=== PATIENT | male | born 1965 | race Caucasian/White ===

== ENCOUNTER 2017-11-11 16:50 | Inpatient (IN) | payer BC ==
[~2017-11-11] VITALS: Ht 172.7 cm; Wt 94.8 kg
[2017-11-11 17:42] VITALS: BP 107/85
[2017-11-11 18:00] VITALS: BP 106/76
[2017-11-11] MEDS ORDERED: DILTIAZEM HCL 30MG TABLET PO SCH (18:08)
[2017-11-11 18:20] LABS: HEMATOCRIT. 42.2 % (42.0-52.0); HEMOGLOBIN. 13.1 g/dL (14.0-18.0); MEAN CORPUSCULAR HEMOGLOBIN 24.8 pg (28.0-32.0); MEAN PLATELET VOLUME 7.6 fl (7.4-10.4); PLATELET 140 x1000/uL (130-400); RED BLOOD CELL COUNT 5.28 mill/uL (4.7-6.1); RED CELL DISTRIBUTION WIDTH 19.2 % (11.6-14.6)
[2017-11-11 18:35] LABS: CHLORIDE 106 mEq/L (98-107)
[2017-11-11 18:44] LABS: CREATINE KINASE MB FRACTION 1.3 ng/mL (0.5-3.6); HDL CHOLESTEROL 20 mg/dL (40-59); LDL CHOLESTEROL 95 mg/dL (5-100); TROPONIN I 0.19 ng/mL (0.00-0.04)
[2017-11-11] MEDS ORDERED: DEXTROSE 50% WATER 50ML SYRINGE IV PRN (18:45)
[2017-11-11] MEDS ORDERED: FUROSEMIDE 20MG/2ML VIAL IVP SCH (18:45)
[2017-11-11 18:55] LABS: HEPATITIS B SURFACE ANTIGEN NEGATIVE
[2017-11-11 19:08] LABS: PLATELET ESTIMATE NORMAL
[2017-11-11 19:23] LABS: HEPATITIS B CORE AB IGM NEGATIVE
[2017-11-11 19:25] LABS: HEPATITIS A AB IGM NEGATIVE (NEGATIVE)
[2017-11-11] MEDS: NITROGLYCERIN OINT 1GM/INCH UDPKT TD SCH (19:36)
[2017-11-11 20:00] VITALS: BP 139/87
[2017-11-11] MEDS ORDERED: DILTIAZEM HCL 30MG TABLET PO NR (20:00)
[2017-11-11] MEDS ORDERED: DIGOXIN 500MCG/2ML AMP IV NR (20:00)
[2017-11-11] MEDS ORDERED: FUROSEMIDE 20MG/2ML VIAL IVP NR (20:00)
[2017-11-11] MEDS ORDERED: ENOXAPARIN 80MG/0.8ML SYR SUBCUT NR (20:00)
[2017-11-11] MEDS: BLOOD SUGAR DIAGNOSTIC STRIP TEST SCH (20:43)
[2017-11-11] MEDS ORDERED: SODIUM CHLORIDE 0.9% 500 ML IV NR (21:00)
[2017-11-11] MEDS: CEFTRIAXONE 2 G in SODIUM CHLORIDE 0.9% 50 ML IV SCH (21:52)
[2017-11-11 22:00] VITALS: BP 101/71
[2017-11-11] MEDS: INSULIN LISPRO 100 UNITS/ML SUBCUT SCH (22:00)
[2017-11-11] MEDS: INSULIN GLARGINE UD 100 UNITS/ML SYR SUBCUT SCH (22:02)
[2017-11-11] MEDS ORDERED: DAPA10TA PO (22:19)
[2017-11-11] MEDS ORDERED: TIOT4MIS3 IH (22:23)
[2017-11-11] MEDS ORDERED: FURO-152 PO (22:23)
[2017-11-12] VITALS (17 sets, daily range): BP systolic 97–135; BP diastolic 56–77
[2017-11-12] MEDS: DILTIAZEM HCL 60MG TABLET PO SCH ×4 (00:52→17:43)
[2017-11-12] MEDS: NITROGLYCERIN OINT 1GM/INCH UDPKT TD SCH ×4 (06:14→17:43)
[2017-11-12] MEDS: BLOOD SUGAR DIAGNOSTIC STRIP TEST SCH ×5 (06:14→21:06)
[2017-11-12] MEDS: INSULIN LISPRO 100 UNITS/ML SUBCUT SCH ×5 (06:20→21:12)
[2017-11-12 06:52] LABS: HEMATOCRIT. 40.4 % (42.0-52.0); HEMOGLOBIN. 12.4 g/dL (14.0-18.0); MEAN CORPUSCULAR HEMOGLOBIN 24.4 pg (28.0-32.0); MEAN CORPUSCULAR VOLUME 79.5 fL (80.0-94.0); MEAN PLATELET VOLUME 7.8 fl (7.4-10.4); PLATELET 126 x1000/uL (130-400); RED BLOOD CELL COUNT 5.08 mill/uL (4.7-6.1); RED CELL DISTRIBUTION WIDTH 19.3 % (11.6-14.6)
[2017-11-12 07:25] LABS: CHLORIDE 103 mEq/L (98-107)
[2017-11-12 07:30] LABS: HDL CHOLESTEROL 16 mg/dL (40-59); LDL CHOLESTEROL 78 mg/dL (5-100)
[2017-11-12] MEDS: MULTIVITAMINS,THER W-MINERALS TABLET PO SCH (08:25)
[2017-11-12] MEDS: ASPIRIN 81MG TABLET PO SCH (08:25)
[2017-11-12] MEDS: PANTOPRAZOLE SODIUM 40 MG/VIAL IV SCH (08:25)
[2017-11-12] MEDS ORDERED: FUROSEMIDE 40MG/4ML VIAL IVP NR (09:00)
[2017-11-12] MEDS: LISINOPRIL 5MG TABLET PO SCH (09:00)
[2017-11-12] MEDS ORDERED: SPIRONOLACTONE 50MG TABLET PO SCH (09:00)
[2017-11-12] MEDS ORDERED: IOHEXOL-350 100 ML BOTTLE ONE (09:30)
[2017-11-12] MEDS ORDERED: FUROSEMIDE 20MG/2ML VIAL IVP SCH ×2 (09:30→17:15)
[2017-11-12] MEDS ORDERED: MORPHINE SULFATE 4 MG/ML CPJ (NOT FOR IM USE) IV NR (09:45)
[2017-11-12] MEDS: INSULIN GLARGINE UD 100 UNITS/ML SYR SUBCUT SCH ×2 (10:14→21:13)
[2017-11-12] MEDS ORDERED: ENOXAPARIN 100MG/ML SYR SUBCUT SCH (11:00)
[2017-11-12] MEDS: FUROSEMIDE 20MG/2ML VIAL IVP SCH ×2 (11:01→17:46)
[2017-11-12 13:11] LABS: PLATELET ESTIMATE SLIGHTLY DECREASED
[2017-11-12] MEDS: HYDRALAZINE HCL 25MG TABLET PO SCH ×2 (14:00→21:06)
[2017-11-12] MEDS ORDERED: DIATR MEGLU/DIATRIZOATE SOLN 30ML PO NR (15:15)
[2017-11-12 15:19] LABS: BG CARBOXYHEMOGLOBIN 0.8 % (0.5-1.5); BG DEOXYHEMOGLOBIN 6.5 % (0.0-5.0); BG FRACTION INSPIRED OXYGEN 32; BG METHEMOGLOBIN 0.4 % (0.0-1.5); BG OXYGEN SATURATION 93.4 % (92.0-98.5); BG OXYHEMOGLOBIN 92.3 % (94.0-97.0); BG PCO2 27.4 mmHg (35.0-45.0); BG PH 7.356 (7.350-7.450); BG SAMPLE SITE RIGHT FEMORAL; BG TOTAL HEMOGLOBIN 13.1 g/dL (12.0-18.0); BG VENT MODE NASAL CANNULA
[2017-11-12] MEDS ORDERED: VANCOMYCIN 2,000 MG in SODIUM CHLORIDE 0.9% 500 ML IV SCH (15:30)
[2017-11-12 16:06] LABS: CLARITY URINE CLEAR (CLEAR); COLOR URINE YELLOW (YELLOW); KETONES URINE NEGATIVE (NEGATIVE); LEUKOCYTE ESTERASE URINE NEGATIVE (NEGATIVE); NITRITE URINE NEGATIVE (NEGATIVE); OCCULT BLOOD URINE TRACE (NEGATIVE); PROTEIN URINE TRACE (NEGATIVE); SPECIFIC GRAVITY URINE 1.021 (1.005-1.030); UROBILINOGEN URINE 0.2 E.U./dL (0.2-1.0)
[2017-11-12 17:16] LABS: INR 1.1; PARTIAL THROMBOPLASTIN TIME 30.1 sec (23.4-31.0); PROTHROMBIN TIME 11.9 sec (9.4-11.6)
[2017-11-12] MEDS ORDERED: IPRATROPIUM/ALBUTEROL 0.5-3(2.5)MG/3ML NEB HHN PRN (19:45)
[2017-11-12] MEDS: IPRATROPIUM/ALBUTEROL 0.5-3(2.5)MG/3ML NEB HHN SCH (20:55)
[2017-11-12] MEDS: CEFTRIAXONE 2 G in SODIUM CHLORIDE 0.9% 50 ML IV SCH (22:22)
[2017-11-12] MEDS: RISPERIDONE 0.5MG TABLET PO SCH (23:43)
[2017-11-13] VITALS (38 sets, daily range): BP systolic 83–164; BP diastolic 39–113
[2017-11-13] MEDS: IPRATROPIUM/ALBUTEROL 0.5-3(2.5)MG/3ML NEB HHN SCH ×3 (02:24→15:39)
[2017-11-13] MEDS: NITROGLYCERIN OINT 1GM/INCH UDPKT TD SCH ×2 (05:28)
[2017-11-13 05:32] LABS: BASOPHILS % 0.2 % (0.0-2.0); EOSINOPHILS % 0.1 % (0.0-5.0); HEMATOCRIT. 37.9 % (42.0-52.0); HEMOGLOBIN. 11.5 g/dL (14.0-18.0); LYMPHOCYTES % 7.4 % (20.0-50.0); MEAN CORPUSCULAR HEMOGLOBIN 24.3 pg (28.0-32.0); MEAN PLATELET VOLUME 7.7 fl (7.4-10.4); MONOCYTES % 5.8 % (2.0-8.0); NEUTROPHILS % 86.5 % (40.0-76.0); PLATELET 108 x1000/uL (130-400); RED BLOOD CELL COUNT 4.74 mill/uL (4.7-6.1); RED CELL DISTRIBUTION WIDTH 19.2 % (11.6-14.6)
[2017-11-13 05:57] LABS: CHLORIDE 104 mEq/L (98-107)
[2017-11-13 06:22] LABS: CREATINE KINASE 127 IU/L (39-308); CREATINE KINASE MB FRACTION 19.5 ng/mL (0.5-3.6)
[2017-11-13] MEDS: DILTIAZEM HCL 60MG TABLET PO SCH ×4 (06:29→18:00)
[2017-11-13] MEDS: HYDRALAZINE HCL 25MG TABLET PO SCH ×2 (06:30→13:25)
[2017-11-13] MEDS: FUROSEMIDE 20MG/2ML VIAL IVP SCH ×2 (06:30→17:15)
[2017-11-13] MEDS: BLOOD SUGAR DIAGNOSTIC STRIP TEST SCH ×4 (08:11→16:30)
[2017-11-13] MEDS: PANTOPRAZOLE SODIUM 40 MG/VIAL IV SCH (08:45)
[2017-11-13] MEDS: ASPIRIN 81MG TABLET PO SCH (08:46)
[2017-11-13] MEDS: RISPERIDONE 0.5MG TABLET PO SCH (08:46)
[2017-11-13] MEDS: LISINOPRIL 5MG TABLET PO SCH (08:46)
[2017-11-13] MEDS: INSULIN LISPRO 100 UNITS/ML SUBCUT SCH ×3 (08:48→12:58)
[2017-11-13] MEDS ORDERED: NITROGLYCERIN 50MG PREMIX 250 ML IV SCH (09:00)
[2017-11-13] MEDS: MULTIVITAMINS,THER W-MINERALS TABLET PO SCH (09:00)
[2017-11-13 09:20] LABS: BG BASE EXCESS -9.8 mmol/L (-2.0-2.0); BG CARBOXYHEMOGLOBIN 0.8 % (0.5-1.5); BG DEOXYHEMOGLOBIN 0.4 % (0.0-5.0); BG FRACTION INSPIRED OXYGEN 100; BG HCO3 ACT 13.5 mmol/L (22.0-26.0); BG METHEMOGLOBIN 0.4 % (0.0-1.5); BG OXYGEN SATURATION 99.6 % (92.0-98.5); BG OXYHEMOGLOBIN 98.4 % (94.0-97.0); BG PCO2 23.8 mmHg (35.0-45.0); BG PH 7.372 (7.350-7.450); BG PO2 256.3 mmHg (75.0-100.0); BG SAMPLE SITE RIGHT BRACHIAL; BG VENT MODE MASK - NRB
[2017-11-13] MEDS ORDERED: DEXTROSE 50% WATER 50ML SYRINGE IV PRN ×3 (09:30→15:30)
[2017-11-13] MEDS ORDERED: SODIUM BICARBONATE 8.4% 1 MEQ/ML 50ML SYR IV SCH (09:45)
[2017-11-13] MEDS ORDERED: ETOMIDATE 2MG/ML 10ML VIAL IV ONE (10:07)
[2017-11-13] MEDS ORDERED: NOREPINEPHRINE 32 MG in DEXT 5% WATER 468 ML IV PRN (10:15)
[2017-11-13] MEDS ORDERED: FENTANYL CITRATE/PF 500 MCG in SODIUM CHLORIDE 0.9% 40 ML IV PRN (10:15)
[2017-11-13] MEDS ORDERED: FUROSEMIDE 40MG/4ML VIAL IVP SCH (10:45)
[2017-11-13 11:03] LABS: BG BASE EXCESS -10.8 mmol/L (-2.0-2.0); BG CARBOXYHEMOGLOBIN 1.1 % (0.5-1.5); BG DEOXYHEMOGLOBIN 2.1 % (0.0-5.0); BG HCO3 ACT 16.2 mmol/L (22.0-26.0); BG METHEMOGLOBIN 0.4 % (0.0-1.5); BG OXYGEN SATURATION 97.9 % (92.0-98.5); BG OXYHEMOGLOBIN 96.4 % (94.0-97.0); BG PCO2 39.7 mmHg (35.0-45.0); BG PH 7.228 (7.350-7.450); BG PO2 120.3 mmHg (75.0-100.0); BG SAMPLE SITE RIGHT RADIAL; BG TIDAL VOLUME(mL) 550 mL; BG TOTAL HEMOGLOBIN 13.6 g/dL (12.0-18.0); BG VENT MODE VENT - A/C; BG VENT RATE 20 set
[2017-11-13] MEDS ORDERED: SODIUM BICARBONATE 8.4% 1 MEQ/ML 50ML SYR IV ONE ×6 (11:15→21:44)
[2017-11-13] MEDS: MIDAZOLAM HCL 100 MG in DEXT 5% WATER 80 ML IV PRN (11:16)
[2017-11-13] MEDS ORDERED: LIDOCAINE HCL/PF 1% 10 MG/ML 5ML VIAL ONE ×2 (11:18→13:01)
[2017-11-13] MEDS ORDERED: SODIUM BICARBONATE 4% (2.4MEQ) 5ML VIAL IV ONE ×2 (11:19→13:02)
[2017-11-13] MEDS: INSULIN GLARGINE UD 100 UNITS/ML SYR SUBCUT SCH (11:49)
[2017-11-13 12:17] LABS: D-DIMER 2.59 mg/L FEU (<0.50); INR 1.1; PARTIAL THROMBOPLASTIN TIME 28.5 sec (23.4-31.0); PROTHROMBIN TIME 11.9 sec (9.4-11.6)
[2017-11-13 12:23] LABS: PHOSPHORUS 7.3 mg/dL (2.5-4.9)
[2017-11-13] MEDS ORDERED: BLOOD SUGAR DIAGNOSTIC STRIP TEST SCH (12:50)
[2017-11-13] MEDS ORDERED: IODIXANOL 320MG/ML 100 ML BOTTLE IV ONE (13:01)
[2017-11-13 13:20] LABS: BG BASE EXCESS -9.5 mmol/L (-2.0-2.0); BG CARBOXYHEMOGLOBIN 0.9 % (0.5-1.5); BG DEOXYHEMOGLOBIN 2.1 % (0.0-5.0); BG HCO3 ACT 16.2 mmol/L (22.0-26.0); BG METHEMOGLOBIN 0.4 % (0.0-1.5); BG OXYGEN SATURATION 97.9 % (92.0-98.5); BG OXYHEMOGLOBIN 96.6 % (94.0-97.0); BG PCO2 34.7 mmHg (35.0-45.0); BG PH 7.287 (7.350-7.450); BG SAMPLE SITE RIGHT RADIAL; BG TIDAL VOLUME(mL) 550 mL; BG TOTAL HEMOGLOBIN 12.5 g/dL (12.0-18.0); BG VENT MODE VENT - A/C; BG VENT RATE 20 set
[2017-11-13 13:40] LABS: INR 1.1; PARTIAL THROMBOPLASTIN TIME 27.8 sec (23.4-31.0); PROTHROMBIN TIME 11.5 sec (9.4-11.6)
[2017-11-13 13:41] LABS: CLARITY URINE CLOUDY (CLEAR); COLOR URINE DARK YELLOW (YELLOW); KETONES URINE NEGATIVE (NEGATIVE); LEUKOCYTE ESTERASE URINE TRACE (NEGATIVE); NITRITE URINE NEGATIVE (NEGATIVE); OCCULT BLOOD URINE 2+ (NEGATIVE); PROTEIN URINE 1+ (NEGATIVE); SPECIFIC GRAVITY URINE 1.019 (1.005-1.030); UROBILINOGEN URINE 0.2 E.U./dL (0.2-1.0)
[2017-11-13 13:57] LABS: AMYLASE 57 IU/L (25-115); CHLORIDE 103 mEq/L (98-107)
[2017-11-13 14:15] LABS: CREATINE KINASE 114 IU/L (39-308); CREATINE KINASE MB FRACTION 17.9 ng/mL (0.5-3.6)
[2017-11-13] MEDS ORDERED: HEPARIN SODIUM 1,000 UNIT/1ML VIAL IV ONE ×3 (14:16→14:38)
[2017-11-13] MEDS ORDERED: CEFAZOLIN 2,000 MG in DEXT 5% WATER 100 ML IV ONE (14:45)
[2017-11-13] MEDS ORDERED: AMINOCAPROIC ACID 10,000 MG in SODIUM CHLORIDE 0.9% 460 ML IV ONE (14:45)
[2017-11-13] MEDS ORDERED: NOREPINEPHRINE 4 MG in DEXT 5% WATER 246 ML IV ONE (14:45)
[2017-11-13] MEDS ORDERED: INSULIN REGULAR (DRIP) 100 UNITS in SODIUM CHLORIDE 0.9% 99 ML IV ONE (14:45)
[2017-11-13] MEDS ORDERED: EPINEPHRINE 4 MG in DEXT 5% WATER 246 ML IV ONE (14:45)
[2017-11-13] MEDS ORDERED: NICARDIPINE 40MG/200ML PREMIX 200 ML IV ONE (14:45)
[2017-11-13] MEDS ORDERED: DEL NIDO ELECTROLYTE-S(PH 7.4) 1,000 ML IV ONE ×2 (14:45)
[2017-11-13] MEDS ORDERED: DOBUTAMINE HCL 250 MG in DEXT 5% WATER 230 ML IV ONE (14:45)
[2017-11-13] MEDS ORDERED: ATROPINE SULFATE 1MG/10ML SYR IV PRN (15:15)
[2017-11-13] MEDS ORDERED: ACETAMINOPHEN 325MG TABLET PO PRN (15:15)
[2017-11-13 15:16] LABS: BG BASE EXCESS -7.8 mmol/L (-2.0-2.0); BG CARBOXYHEMOGLOBIN 0.7 % (0.5-1.5); BG DEOXYHEMOGLOBIN 1.3 % (0.0-5.0); BG HCO3 ACT 17.3 mmol/L (22.0-26.0); BG METHEMOGLOBIN 0.5 % (0.0-1.5); BG OXYGEN SATURATION 98.7 % (92.0-98.5); BG OXYHEMOGLOBIN 97.5 % (94.0-97.0); BG PCO2 33.9 mmHg (35.0-45.0); BG PH 7.325 (7.350-7.450); BG PO2 143.9 mmHg (75.0-100.0); BG SAMPLE SITE RIGHT RADIAL; BG TIDAL VOLUME(mL) 550 mL; BG TOTAL HEMOGLOBIN 12.2 g/dL (12.0-18.0); BG VENT MODE VENT - A/C; BG VENT RATE 20 set
[2017-11-13] MEDS: PROPOFOL 10MG/ML 100ML 100 ML IV PRN (15:24)
[2017-11-13] MEDS ORDERED: BACITRACIN 50,000 UNITS/VIAL ONE ×2 (15:46→21:26)
[2017-11-13] MEDS ORDERED: NORMAL SALINE 0.9% 10 ML SYR ONE ×2 (15:46→21:25)
[2017-11-13] MEDS ORDERED: VANCOMYCIN 1,250 MG in SODIUM CHLORIDE 0.9% 250 ML IV SCH (16:00)
[2017-11-13] MEDS ORDERED: KETAMINE HCL 50 MG/ML 10ML ONE (16:23)
[2017-11-13] MEDS ORDERED: MIDAZOLAM HCL 5 MG/ML VIAL ONE (16:24)
[2017-11-13] MEDS ORDERED: CALCIUM CHLORIDE 1GM/10ML SYR IV ONE ×2 (16:27→17:24)
[2017-11-13] MEDS ORDERED: ALBUMIN HUMAN 12.5G/250ML (5%) IV ONE ×2 (16:27→20:51)
[2017-11-13] MEDS ORDERED: VASOPRESSIN 10 UNIT in SODIUM CHLORIDE 0.9% 100 ML IV PRN (17:00)
[2017-11-13] MEDS ORDERED: GELATIN SPONGE,ABSORBABLE SZ 100 ONE (17:08)
[2017-11-13] MEDS ORDERED: THROMBIN (BOVINE) 5000 UNITS/VIAL TOP ONE (17:08)
[2017-11-13] MEDS ORDERED: NOREPINEPHRINE 4 MG in DEXTROSE 5% WATER 250 ML IV PRN (17:15)
[2017-11-13] MEDS ORDERED: AMIODARONE HCL 50MG/ML 3ML VIAL IV ONE (17:23)
[2017-11-13] MEDS ORDERED: MAGNESIUM SULFATE 5GM/10ML VIAL IV ONE (17:23)
[2017-11-13] MEDS ORDERED: AMINOCAPROIC ACID 250 MG/ML 20ML VIAL ONE (17:23)
[2017-11-13] MEDS ORDERED: ALBUMIN HUMAN 25GM/100ML (25%) IV ONE (17:23)
[2017-11-13] MEDS ORDERED: PHENYLEPHRINE HCL 10 MG/ML 1ML (IV VIAL) IV ONE (17:23)
[2017-11-13] MEDS ORDERED: MANNITOL 20% 500 ML IV ONE (17:24)
[2017-11-13] MEDS ORDERED: HEPARIN 10,000 UNITS/ML VIAL ONE (17:24)
[2017-11-13] MEDS ORDERED: LIDOCAINE HCL 2% 5ML SYRINGE IV ONE (17:24)
[2017-11-13] MEDS ORDERED: HEPARIN 1000 UNITS/ML 10ML ONE ×3 (17:25→20:58)
[2017-11-13] MEDS ORDERED: ESMOLOL 2500MG PREMIX 250 ML IV ONE (18:06)
[2017-11-13] MEDS ORDERED: PHENYLEPHRINE 10MG in DEXT 5% WATER 250ML IV PRN (18:15)
[2017-11-13] MEDS ORDERED: FENTANYL CITRATE/PF 50MCG/ML 5ML VIAL ONE (18:24)
[2017-11-13] MEDS ORDERED: FUROSEMIDE 100MG/10ML VIAL ONE (20:36)
[2017-11-13] MEDS ORDERED: CHLORHEXIDINE GLUCONATE 4% EXTERNAL USE TOP SCH (21:00)
[2017-11-13] MEDS ORDERED: ROCURONIUM BROMIDE 10MG/ML VIAL 5ML IV ONE ×2 (21:22→21:26)
[2017-11-13 22:46] LABS: BASOPHILS % 0.1 % (0.0-2.0); EOSINOPHILS % 0.2 % (0.0-5.0); HEMATOCRIT. 25.7 % (42.0-52.0); LYMPHOCYTES % 7.7 % (20.0-50.0); MEAN CORPUSCULAR HEMOGLOBIN 24.7 pg (28.0-32.0); MEAN CORPUSCULAR VOLUME 79.3 fL (80.0-94.0); MEAN PLATELET VOLUME 7.4 fl (7.4-10.4); MONOCYTES % 2.6 % (2.0-8.0); NEUTROPHILS % 89.4 % (40.0-76.0); PLATELET 62 x1000/uL (130-400); RED BLOOD CELL COUNT 3.24 mill/uL (4.7-6.1); RED CELL DISTRIBUTION WIDTH 19.2 % (11.6-14.6)
[2017-11-13 22:57] LABS: PHOSPHORUS 6.7 mg/dL (2.5-4.9)
[2017-11-13 23:02] LABS: CREATINE KINASE MB FRACTION 88.7 ng/mL (0.5-3.6)
[2017-11-13 23:08] LABS: INR 2.6; PROTHROMBIN TIME 26.8 sec (9.4-11.6)
[2017-11-14] VITALS (98 sets, daily range): BP systolic 87–201; BP diastolic 28–199
[2017-11-14] MEDS: BLOOD SUGAR DIAGNOSTIC STRIP TEST SCH ×19 (00:30→20:30)
[2017-11-14 01:01] LABS: BG BASE EXCESS -2.5 mmol/L (-2.0-2.0); BG CARBOXYHEMOGLOBIN 0.9 % (0.5-1.5); BG DEOXYHEMOGLOBIN 4.5 % (0.0-5.0); BG FRACTION INSPIRED OXYGEN 100; BG HCO3 ACT 22.5 mmol/L (22.0-26.0); BG METHEMOGLOBIN 0.5 % (0.0-1.5); BG OXYGEN SATURATION 95.4 % (92.0-98.5); BG OXYHEMOGLOBIN 94.1 % (94.0-97.0); BG PCO2 39.4 mmHg (35.0-45.0); BG PH 7.374 (7.350-7.450); BG PIP 40 cmH2O; BG PO2 90.3 mmHg (75.0-100.0); BG SAMPLE SITE A-LINE; BG TIDAL VOLUME(mL) 600 mL; BG TOTAL HEMOGLOBIN 6.8 g/dL (12.0-18.0); BG VENT MODE VENT - A/C; BG VENT RATE 14 set
[2017-11-14 01:20] LABS: MEAN CORPUSCULAR HEMOGLOBIN 24.4 pg (28.0-32.0); MEAN PLATELET VOLUME 7.8 fl (7.4-10.4); PLATELET 108 x1000/uL (130-400); RED BLOOD CELL COUNT 2.52 mill/uL (4.7-6.1)
[2017-11-14 01:23] LABS: HEMATOCRIT. 19.9 % (42.0-52.0); HEMOGLOBIN. 6.1 g/dL (14.0-18.0)
[2017-11-14 01:25] LABS: INR 1.3; PARTIAL THROMBOPLASTIN TIME 35.1 sec (23.4-31.0); PROTHROMBIN TIME 13.4 sec (9.4-11.6)
[2017-11-14 01:28] LABS: PHOSPHORUS 6.1 mg/dL (2.5-4.9)
[2017-11-14 01:46] LABS: MEAN CORPUSCULAR HEMOGLOBIN 24.5 pg (28.0-32.0); MEAN CORPUSCULAR VOLUME 78.7 fL (80.0-94.0); PLATELET 112 x1000/uL (130-400); RED BLOOD CELL COUNT 2.55 mill/uL (4.7-6.1)
[2017-11-14 01:52] LABS: HEMATOCRIT 20.1 % (42.0-52.0); HEMOGLOBIN 6.2 g/dL (14.0-18.0)
[2017-11-14 02:04] LABS: BG BASE EXCESS -2.5 mmol/L (-2.0-2.0); BG DEOXYHEMOGLOBIN 1.1 % (0.0-5.0); BG FRACTION INSPIRED OXYGEN 100; BG METHEMOGLOBIN 0.6 % (0.0-1.5); BG OXYGEN SATURATION 98.9 % (92.0-98.5); BG OXYHEMOGLOBIN 97.3 % (94.0-97.0); BG PCO2 36.4 mmHg (35.0-45.0); BG PO2 182.3 mmHg (75.0-100.0); BG SAMPLE SITE A-LINE; BG TIDAL VOLUME(mL) 600 mL; BG TOTAL HEMOGLOBIN 6.6 g/dL (12.0-18.0); BG VENT MODE VENT - A/C; BG VENT RATE 14 set
[2017-11-14] MEDS: MIDAZOLAM HCL 100 MG in DEXT 5% WATER 80 ML IV PRN (03:54)
[2017-11-14] MEDS ORDERED: EPINEPHRINE 4 MG in DEXT 5% WATER 246 ML IV PRN (04:00)
[2017-11-14 04:05] LABS: PLATELET ESTIMATE SLIGHTLY DECREASED
[2017-11-14] MEDS: VASOPRESSIN 10 UNIT in SODIUM CHLORIDE 0.9% 99.5 ML IV PRN ×2 (04:34→09:58)
[2017-11-14] MEDS: PROPOFOL 10MG/ML 100ML 100 ML IV PRN ×2 (05:40→07:06)
[2017-11-14] MEDS: PHENYLEPHRINE 10 MG in SODIUM CHLORIDE 0.9% 249 ML IV PRN ×2 (05:49→07:53)
[2017-11-14] MEDS: INSULIN REGULAR (DRIP) 100 UNITS in SODIUM CHLORIDE 0.9% 100 ML IV SCH (06:04)
[2017-11-14 06:17] LABS: BG BASE EXCESS -2.2 mmol/L (-2.0-2.0); BG FRACTION INSPIRED OXYGEN 60; BG HCO3 ACT 22.4 mmol/L (22.0-26.0); BG METHEMOGLOBIN 0.4 % (0.0-1.5); BG OXYHEMOGLOBIN 95.6 % (94.0-97.0); BG PCO2 37.5 mmHg (35.0-45.0); BG PH 7.395 (7.350-7.450); BG PO2 105.3 mmHg (75.0-100.0); BG SAMPLE SITE A-LINE; BG TIDAL VOLUME(mL) 600 mL; BG TOTAL HEMOGLOBIN 8.4 g/dL (12.0-18.0); BG VENT MODE VENT - A/C; BG VENT RATE 14 set
[2017-11-14 06:49] LABS: INR 1.2; PARTIAL THROMBOPLASTIN TIME 28.8 sec (23.4-31.0); PROTHROMBIN TIME 12.4 sec (9.4-11.6)
[2017-11-14] MEDS: FUROSEMIDE 20MG/2ML VIAL IVP SCH (07:15)
[2017-11-14 07:19] LABS: CHLORIDE 107 mEq/L (98-107)
[2017-11-14 07:25] LABS: PHOSPHORUS 6.1 mg/dL (2.5-4.9)
[2017-11-14] MEDS: IPRATROPIUM/ALBUTEROL 0.5-3(2.5)MG/3ML NEB HHN SCH ×2 (08:10→14:49)
[2017-11-14 08:56] LABS: HEMATOCRIT. 24.3 % (42.0-52.0); HEMOGLOBIN. 7.7 g/dL (14.0-18.0); MEAN CORPUSCULAR HEMOGLOBIN 25.8 pg (28.0-32.0); MEAN CORPUSCULAR VOLUME 81.2 fL (80.0-94.0); MEAN PLATELET VOLUME 8.4 fl (7.4-10.4); PLATELET 117 x1000/uL (130-400); RED BLOOD CELL COUNT 2.99 mill/uL (4.7-6.1)
[2017-11-14] MEDS ORDERED: CHLORHEXIDINE GLUCONATE 4% EXTERNAL USE TOP SCH (09:00)
[2017-11-14] MEDS: MULTIVITAMINS,THER W-MINERALS TABLET PO SCH (09:00)
[2017-11-14] MEDS: ASPIRIN 81MG TABLET PO SCH (09:00)
[2017-11-14] MEDS: LISINOPRIL 5MG TABLET PO SCH (09:00)
[2017-11-14 09:35] LABS: ATYPICAL LYMPHOCYTES 1; PLATELET ESTIMATE SLIGHTLY DECREASED
[2017-11-14] MEDS ORDERED: CALCIUM CHLORIDE 1,000 MG in DEXT 5% WATER 100 ML IV SCH (10:00)
[2017-11-14] MEDS ORDERED: CALCIUM CHLORIDE 1,000 MG in DEXT 5% WATER 90 ML IV SCH (11:00)
[2017-11-14] MEDS ORDERED: CALCIUM CHLORIDE 5,000 MG in DEXT 5% WATER 500 ML IV SCH (11:00)
[2017-11-14] MEDS: RISPERIDONE 0.5MG TABLET PO SCH (11:09)
[2017-11-14] MEDS: MAGNESIUM 1 G PREMIX 100 ML IV SCH (11:11)
[2017-11-14] MEDS: VANCOMYCIN 1,250 MG in SODIUM CHLORIDE 0.9% 250 ML IV SCH (11:53)
[2017-11-14] MEDS: PANTOPRAZOLE SODIUM 40 MG/VIAL IV SCH (11:53)
[2017-11-14] MEDS ORDERED: CALCIUM CHLORIDE 5,000 MG in DEXT 5% WATER 500 ML IV NR (12:00)
[2017-11-14] MEDS ORDERED: FUROSEMIDE 40MG/4ML VIAL IVP SCH ×2 (13:45→20:30)
[2017-11-14 14:43] LABS: BG BASE EXCESS -1.5 mmol/L (-2.0-2.0); BG CARBOXYHEMOGLOBIN 0.5 % (0.5-1.5); BG DEOXYHEMOGLOBIN 1.3 % (0.0-5.0); BG FRACTION INSPIRED OXYGEN 60; BG HCO3 ACT 22.7 mmol/L (22.0-26.0); BG METHEMOGLOBIN 0.5 % (0.0-1.5); BG OXYGEN SATURATION 98.7 % (92.0-98.5); BG OXYHEMOGLOBIN 97.7 % (94.0-97.0); BG PCO2 35.9 mmHg (35.0-45.0); BG PH 7.418 (7.350-7.450); BG PO2 169.2 mmHg (75.0-100.0); BG SAMPLE SITE A-LINE; BG TIDAL VOLUME(mL) 600 mL; BG TOTAL HEMOGLOBIN 9.2 g/dL (12.0-18.0); BG VENT MODE VENT - A/C; BG VENT RATE 14 set
[2017-11-14 16:01] LABS: BASOPHILS % 0.1 % (0.0-2.0); HEMATOCRIT. 26.8 % (42.0-52.0); HEMOGLOBIN. 8.5 g/dL (14.0-18.0); LYMPHOCYTES % 9.5 % (20.0-50.0); MEAN CORPUSCULAR HEMOGLOBIN 26.6 pg (28.0-32.0); MEAN CORPUSCULAR VOLUME 83.3 fL (80.0-94.0); MEAN PLATELET VOLUME 8.4 fl (7.4-10.4); MONOCYTES % 6.6 % (2.0-8.0); NEUTROPHILS % 83.8 % (40.0-76.0); PLATELET 109 x1000/uL (130-400); RED BLOOD CELL COUNT 3.22 mill/uL (4.7-6.1); RED CELL DISTRIBUTION WIDTH 19.7 % (11.6-14.6)
[2017-11-14 17:07] LABS: BG BASE EXCESS -1.6 mmol/L (-2.0-2.0); BG CARBOXYHEMOGLOBIN 0.4 % (0.5-1.5); BG DEOXYHEMOGLOBIN 2.2 % (0.0-5.0); BG FRACTION INSPIRED OXYGEN 60; BG HCO3 ACT 22.6 mmol/L (22.0-26.0); BG METHEMOGLOBIN 0.5 % (0.0-1.5); BG OXYGEN SATURATION 97.8 % (92.0-98.5); BG OXYHEMOGLOBIN 96.9 % (94.0-97.0); BG PCO2 35.7 mmHg (35.0-45.0); BG PH 7.419 (7.350-7.450); BG PO2 112.2 mmHg (75.0-100.0); BG SAMPLE SITE A-LINE; BG TIDAL VOLUME(mL) 600 mL; BG TOTAL HEMOGLOBIN 9.1 g/dL (12.0-18.0); BG VENT MODE VENT - A/C; BG VENT RATE 14 set
[2017-11-14] MEDS: DEXT 5%/0.45% NACL 1000ML 1,000 ML IV SCH (19:14)
[2017-11-14] MEDS: CEFTRIAXONE 2 G in SODIUM CHLORIDE 0.9% 50 ML IV SCH ×2 (20:00→20:14)
[2017-11-14 21:07] LABS: BASOPHILS % 0.1 % (0.0-2.0); HEMOGLOBIN. 7.5 g/dL (14.0-18.0); LYMPHOCYTES % 8.2 % (20.0-50.0); MEAN CORPUSCULAR HEMOGLOBIN 27.4 pg (28.0-32.0); MEAN CORPUSCULAR VOLUME 83.6 fL (80.0-94.0); MEAN PLATELET VOLUME 7.9 fl (7.4-10.4); MONOCYTES % 6.9 % (2.0-8.0); NEUTROPHILS % 84.8 % (40.0-76.0); PLATELET 80 x1000/uL (130-400); RED BLOOD CELL COUNT 2.76 mill/uL (4.7-6.1); RED CELL DISTRIBUTION WIDTH 18.6 % (11.6-14.6)
[2017-11-14] MEDS ORDERED: KCL 10MEQ/50ML PREMIX 150 ML IV PRN (22:15)
[2017-11-14] MEDS ORDERED: KCL 10MEQ/50ML PREMIX 200 ML IV PRN (22:15)
[2017-11-14 23:12] LABS: HEMATOCRIT 28.1 % (42.0-52.0); HEMOGLOBIN 9.4 g/dL (14.0-18.0); MEAN CORPUSCULAR HEMOGLOBIN 27.8 pg (28.0-32.0); MEAN CORPUSCULAR VOLUME 82.6 fL (80.0-94.0); PLATELET 102 x1000/uL (130-400); RED CELL DISTRIBUTION WIDTH 18.3 % (11.6-14.6)
[2017-11-14 23:23] LABS: PHOSPHORUS 6.3 mg/dL (2.5-4.9)
[2017-11-15] VITALS (62 sets, daily range): BP systolic 110–177; BP diastolic 55–92
[2017-11-15] MEDS: KCL 10MEQ/50ML PREMIX 100 ML IV PRN ×3 (00:07→16:24)
[2017-11-15] MEDS: MORPHINE SULFATE 4 MG/ML CPJ (NOT FOR IM USE) IV PRN ×2 (00:32→13:18)
[2017-11-15] MEDS: MAGNESIUM 1 G PREMIX 100 ML IV SCH (02:16)
[2017-11-15 05:13] LABS: BG BASE EXCESS -1.5 mmol/L (-2.0-2.0); BG CARBOXYHEMOGLOBIN 0.2 % (0.5-1.5); BG DEOXYHEMOGLOBIN 1.8 % (0.0-5.0); BG FRACTION INSPIRED OXYGEN 30; BG HCO3 ACT 22.4 mmol/L (22.0-26.0); BG METHEMOGLOBIN 0.1 % (0.0-1.5); BG OXYGEN SATURATION 98.2 % (92.0-98.5); BG OXYHEMOGLOBIN 97.9 % (94.0-97.0); BG PCO2 34.5 mmHg (35.0-45.0); BG PH 7.431 (7.350-7.450); BG PO2 143.4 mmHg (75.0-100.0); BG SAMPLE SITE A-LINE; BG TIDAL VOLUME(mL) 550 mL; BG TOTAL HEMOGLOBIN 9.8 g/dL (12.0-18.0); BG VENT MODE VENT - A/C; BG VENT RATE 12 set
[2017-11-15 05:55] LABS: HEMATOCRIT. 28.6 % (42.0-52.0); HEMOGLOBIN. 9.2 g/dL (14.0-18.0); LYMPHOCYTES % 8.5 % (20.0-50.0); MEAN CORPUSCULAR HEMOGLOBIN 26.7 pg (28.0-32.0); MEAN PLATELET VOLUME 8.2 fl (7.4-10.4); MONOCYTES % 5.3 % (2.0-8.0); NEUTROPHILS % 86.2 % (40.0-76.0); PLATELET 112 x1000/uL (130-400); RED BLOOD CELL COUNT 3.44 mill/uL (4.7-6.1); RED CELL DISTRIBUTION WIDTH 18.5 % (11.6-14.6)
[2017-11-15 06:01] LABS: CHLORIDE 110 mEq/L (98-107)
[2017-11-15 06:17] LABS: PHOSPHORUS 6.3 mg/dL (2.5-4.9)
[2017-11-15] MEDS: BLOOD SUGAR DIAGNOSTIC STRIP TEST SCH ×12 (07:30→18:46)
[2017-11-15 09:07] LABS: BG BASE EXCESS 0.7 mmol/L (-2.0-2.0); BG CARBOXYHEMOGLOBIN 0.5 % (0.5-1.5); BG DEOXYHEMOGLOBIN 1.4 % (0.0-5.0); BG FRACTION INSPIRED OXYGEN 50; BG METHEMOGLOBIN 0.3 % (0.0-1.5); BG OXYGEN SATURATION 98.6 % (92.0-98.5); BG OXYHEMOGLOBIN 97.8 % (94.0-97.0); BG PCO2 38.9 mmHg (35.0-45.0); BG PH 7.426 (7.350-7.450); BG PO2 149.2 mmHg (75.0-100.0); BG PRESSURE SUPPORT 8; BG SAMPLE SITE A-LINE; BG TOTAL HEMOGLOBIN 9.8 g/dL (12.0-18.0); BG VENT MODE VENT - CPAP
[2017-11-15] MEDS: DEXT 5%/0.45% NACL 1000ML 1,000 ML IV SCH (10:43)
[2017-11-15] MEDS: VANCOMYCIN 1,250 MG in SODIUM CHLORIDE 0.9% 250 ML IV SCH (10:52)
[2017-11-15] MEDS: INSULIN REGULAR (DRIP) 100 UNITS in SODIUM CHLORIDE 0.9% 100 ML IV SCH (10:59)
[2017-11-15 11:13] LABS: BG BASE EXCESS -1.3 mmol/L (-2.0-2.0); BG CARBOXYHEMOGLOBIN 0.2 % (0.5-1.5); BG DEOXYHEMOGLOBIN 5.9 % (0.0-5.0); BG FRACTION INSPIRED OXYGEN 40; BG METHEMOGLOBIN 0.3 % (0.0-1.5); BG OXYGEN SATURATION 94.1 % (92.0-98.5); BG OXYHEMOGLOBIN 93.6 % (94.0-97.0); BG PCO2 36.8 mmHg (35.0-45.0); BG PH 7.413 (7.350-7.450); BG PO2 77.4 mmHg (75.0-100.0); BG SAMPLE SITE A-LINE; BG TOTAL HEMOGLOBIN 10.3 g/dL (12.0-18.0); BG VENT MODE MASK - AEROSOL
[2017-11-15] MEDS ORDERED: RACEPINEPHRINE 2.25% 0.5ML NEB VIAL HHN PRN (12:00)
[2017-11-15] MEDS ORDERED: FUROSEMIDE 40MG/4ML VIAL IVP NR (12:15)
[2017-11-15] MEDS ORDERED: AMLODIPINE 5MG TABLET PO PRN (12:30)
[2017-11-15] MEDS: NITROGLYCERIN OINT 1GM/INCH UDPKT TD SCH ×3 (12:32→23:52)
[2017-11-15 13:37] LABS: BG BASE EXCESS -0.3 mmol/L (-2.0-2.0); BG CARBOXYHEMOGLOBIN 0.1 % (0.5-1.5); BG DEOXYHEMOGLOBIN 5.2 % (0.0-5.0); BG FRACTION INSPIRED OXYGEN 50; BG HCO3 ACT 23.7 mmol/L (22.0-26.0); BG METHEMOGLOBIN 0.5 % (0.0-1.5); BG OXYGEN SATURATION 94.8 % (92.0-98.5); BG OXYHEMOGLOBIN 94.2 % (94.0-97.0); BG PCO2 36.2 mmHg (35.0-45.0); BG PH 7.433 (7.350-7.450); BG PO2 80.9 mmHg (75.0-100.0); BG SAMPLE SITE A-LINE; BG TOTAL HEMOGLOBIN 10.5 g/dL (12.0-18.0); BG VENT MODE MASK - AEROSOL
[2017-11-15 13:54] LABS: HEMATOCRIT. 29.8 % (42.0-52.0); HEMOGLOBIN. 9.5 g/dL (14.0-18.0); MEAN CORPUSCULAR HEMOGLOBIN 26.4 pg (28.0-32.0); MEAN PLATELET VOLUME 7.7 fl (7.4-10.4); PLATELET 130 x1000/uL (130-400); RED BLOOD CELL COUNT 3.59 mill/uL (4.7-6.1); RED CELL DISTRIBUTION WIDTH 19.1 % (11.6-14.6)
[2017-11-15 14:16] LABS: PLATELET ESTIMATE NORMAL
[2017-11-15] MEDS ORDERED: ENOXAPARIN 80MG/0.8ML SYR SUBCUT NR (17:00)
[2017-11-15] MEDS ORDERED: IPRATROPIUM/ALBUTEROL 0.5-3(2.5)MG/3ML NEB HHN SCH (18:00)
[2017-11-15] MEDS ORDERED: WARFARIN SODIUM 5MG TABLET PO NR (18:00)
[2017-11-15] MEDS: IPRATROPIUM/ALBUTEROL 0.5-3(2.5)MG/3ML NEB HHN PRN (18:16)
[2017-11-15] MEDS ORDERED: IPRATROPIUM BROMIDE (0.02%) 0.5MG/2.5ML NEB HHN SCH (18:30)
[2017-11-15 19:47] LABS: BG BASE EXCESS -1.4 mmol/L (-2.0-2.0); BG CARBOXYHEMOGLOBIN 0.4 % (0.5-1.5); BG DEOXYHEMOGLOBIN 4.7 % (0.0-5.0); BG FRACTION INSPIRED OXYGEN 40; BG HCO3 ACT 22.6 mmol/L (22.0-26.0); BG METHEMOGLOBIN 0.3 % (0.0-1.5); BG OXYGEN SATURATION 95.3 % (92.0-98.5); BG OXYHEMOGLOBIN 94.6 % (94.0-97.0); BG PCO2 35.6 mmHg (35.0-45.0); BG PH 7.421 (7.350-7.450); BG PO2 82.5 mmHg (75.0-100.0); BG SAMPLE SITE LEFT RADIAL; BG TOTAL HEMOGLOBIN 10.5 g/dL (12.0-18.0); BG VENT MODE MASK - AEROSOL
[2017-11-15] MEDS ORDERED: NICARDIPINE 40MG/200ML PREMIX 200 ML IV PRN (20:00)
[2017-11-15] MEDS ORDERED: MAGNESIUM/ALUMINUM HYDROXIDE/SIMETHICONE 30ML UDC PO SCH (20:00)
[2017-11-15] MEDS: CEFTRIAXONE 2 G in SODIUM CHLORIDE 0.9% 50 ML IV SCH (20:20)
[2017-11-15] MEDS ORDERED: NICARDIPINE 50 MG in SODIUM CHLORIDE 0.9% 230 ML IV PRN (21:00)
[2017-11-15] MEDS: DOCUSATE SODIUM 100MG CAPSULE PO SCH (21:00)
[2017-11-15] MEDS: IPRATROPIUM BROMIDE (0.02%) 0.5MG/2.5ML NEB HHN SCH (21:28)
[2017-11-16] VITALS (31 sets, daily range): BP systolic 111–152; BP diastolic 64–95
[2017-11-16] MEDS: KCL 10MEQ/50ML PREMIX 100 ML IV PRN (00:39)
[2017-11-16] MEDS: MORPHINE SULFATE 4 MG/ML CPJ (NOT FOR IM USE) IV PRN ×5 (01:37→23:14)
[2017-11-16] MEDS: IPRATROPIUM BROMIDE (0.02%) 0.5MG/2.5ML NEB HHN SCH ×3 (02:10→13:25)
[2017-11-16 05:45] LABS: HEMATOCRIT. 29.8 % (42.0-52.0); HEMOGLOBIN. 9.7 g/dL (14.0-18.0); MEAN CORPUSCULAR HEMOGLOBIN 27.4 pg (28.0-32.0); MEAN CORPUSCULAR VOLUME 84.6 fL (80.0-94.0); MEAN PLATELET VOLUME 7.9 fl (7.4-10.4); PLATELET 137 x1000/uL (130-400); RED BLOOD CELL COUNT 3.52 mill/uL (4.7-6.1); RED CELL DISTRIBUTION WIDTH 19.2 % (11.6-14.6)
[2017-11-16 06:57] LABS: PHOSPHORUS 5.7 mg/dL (2.5-4.9)
[2017-11-16 07:49] LABS: BG BASE EXCESS -1.6 mmol/L (-2.0-2.0); BG CARBOXYHEMOGLOBIN 0.8 % (0.5-1.5); BG DEOXYHEMOGLOBIN 3.9 % (0.0-5.0); BG HCO3 ACT 22.7 mmol/L (22.0-26.0); BG METHEMOGLOBIN 0.3 % (0.0-1.5); BG OXYGEN SATURATION 96.1 % (92.0-98.5); BG PCO2 36.6 mmHg (35.0-45.0); BG PH 7.411 (7.350-7.450); BG PO2 89.1 mmHg (75.0-100.0); BG SAMPLE SITE LEFT BRACHIAL; BG TOTAL HEMOGLOBIN 10.4 g/dL (12.0-18.0); BG VENT MODE MASK - AEROSOL
[2017-11-16] MEDS: BLOOD SUGAR DIAGNOSTIC STRIP TEST SCH ×7 (08:12→20:50)
[2017-11-16] MEDS: MAGNESIUM 1 G PREMIX 100 ML IV SCH (08:26)
[2017-11-16] MEDS: NITROGLYCERIN OINT 1GM/INCH UDPKT TD SCH ×4 (08:26→18:00)
[2017-11-16] MEDS: DOCUSATE SODIUM 100MG CAPSULE PO SCH ×2 (08:26→16:30)
[2017-11-16 08:31] LABS: INR 1.2; PROTHROMBIN TIME 12.9 sec (9.4-11.6)
[2017-11-16 08:42] LABS: PLATELET ESTIMATE NORMAL
[2017-11-16] MEDS ORDERED: ENOXAPARIN 80MG/0.8ML SYR SUBCUT NR (11:00)
[2017-11-16] MEDS ORDERED: DEXTROSE 50% WATER 50ML SYRINGE IV PRN (11:45)
[2017-11-16] MEDS: VANCOMYCIN 1,250 MG in SODIUM CHLORIDE 0.9% 250 ML IV SCH (11:49)
[2017-11-16] MEDS: HYDROCODONE/ACETAMINOPHEN 10/325MG TABLET PO PRN ×2 (13:10→19:31)
[2017-11-16] MEDS: INSULIN LISPRO 100 UNITS/ML SUBCUT SCH ×3 (13:20→21:03)
[2017-11-16] MEDS ORDERED: FUROSEMIDE 40MG/4ML VIAL IVP NR (13:45)
[2017-11-16] MEDS ORDERED: WARFARIN SODIUM 5MG TABLET PO NR (19:30)
[2017-11-16] MEDS: CEFTRIAXONE 2 G in SODIUM CHLORIDE 0.9% 50 ML IV SCH (20:49)
[2017-11-16] MEDS: INSULIN GLARGINE UD 100 UNITS/ML SYR SUBCUT SCH (21:04)
[2017-11-17] VITALS (25 sets, daily range): BP systolic 114–169; BP diastolic 58–97
[2017-11-17] MEDS: IPRATROPIUM BROMIDE (0.02%) 0.5MG/2.5ML NEB HHN SCH ×4 (02:07→21:18)
[2017-11-17] MEDS: MORPHINE SULFATE 4 MG/ML CPJ (NOT FOR IM USE) IV PRN (03:35)
[2017-11-17 05:47] LABS: HEMOGLOBIN. 8.8 g/dL (14.0-18.0); MEAN CORPUSCULAR HEMOGLOBIN 26.3 pg (28.0-32.0); MEAN CORPUSCULAR VOLUME 86.1 fL (80.0-94.0); MEAN PLATELET VOLUME 7.6 fl (7.4-10.4); PLATELET 170 x1000/uL (130-400); RED BLOOD CELL COUNT 3.37 mill/uL (4.7-6.1); RED CELL DISTRIBUTION WIDTH 19.6 % (11.6-14.6)
[2017-11-17] MEDS: NITROGLYCERIN OINT 1GM/INCH UDPKT TD SCH ×3 (05:51→13:14)
[2017-11-17 05:59] LABS: INR 1.8; PROTHROMBIN TIME 18.7 sec (9.4-11.6)
[2017-11-17 06:07] LABS: CHLORIDE 107 mEq/L (98-107)
[2017-11-17] MEDS: HYDROCODONE/ACETAMINOPHEN 10/325MG TABLET PO PRN ×3 (06:39→21:58)
[2017-11-17] MEDS: MAGNESIUM 1 G PREMIX 100 ML IV SCH ×2 (07:01→08:34)
[2017-11-17 07:41] LABS: PLATELET ESTIMATE NORMAL
[2017-11-17] MEDS: BLOOD SUGAR DIAGNOSTIC STRIP TEST SCH ×4 (08:17→21:00)
[2017-11-17] MEDS: INSULIN LISPRO 100 UNITS/ML SUBCUT SCH ×4 (08:29→21:57)
[2017-11-17] MEDS: DOCUSATE SODIUM 100MG CAPSULE PO SCH ×2 (08:29→18:23)
[2017-11-17] MEDS: VANCOMYCIN 1,250 MG in SODIUM CHLORIDE 0.9% 250 ML IV SCH (11:03)
[2017-11-17] MEDS ORDERED: ENOXAPARIN 60MG/0.6ML SYR SUBCUT NR (12:42)
[2017-11-17] MEDS ORDERED: POTASSIUM CHLORIDE 10MEQ IN WATER 50ML PREMIX IV ONE (12:55)
[2017-11-17] MEDS ORDERED: MAGNESIUM SULFATE 1G IN DEXT 5% 100ML PREMIX IV ONE (12:55)
[2017-11-17] MEDS ORDERED: CALCIUM CHLORIDE 1,000 MG in DEXT 5% WATER 90 ML IV ONE (14:45)
[2017-11-17] MEDS ORDERED: WARFARIN SODIUM 5MG TABLET PO NR ×2 (17:00→19:00)
[2017-11-17] MEDS ORDERED: MAGNESIUM 1 G PREMIX 100 ML IV NR (18:00)
[2017-11-17] MEDS: CEFTRIAXONE 2 G in SODIUM CHLORIDE 0.9% 50 ML IV SCH (20:15)
[2017-11-17] MEDS: INSULIN GLARGINE UD 100 UNITS/ML SYR SUBCUT SCH (21:57)
[2017-11-18] VITALS (25 sets, daily range): BP systolic 123–157; BP diastolic 44–98
[2017-11-18] MEDS: IPRATROPIUM BROMIDE (0.02%) 0.5MG/2.5ML NEB HHN SCH ×3 (02:23→20:51)
[2017-11-18 06:00] LABS: INR 3.9; PROTHROMBIN TIME 40.4 sec (9.4-11.6)
[2017-11-18] MEDS: PHENOL/SODIUM PHENOLATE 1.4% SRPAY 177ML MM PRN ×2 (06:49→13:34)
[2017-11-18] MEDS: HYDROCODONE/ACETAMINOPHEN 10/325MG TABLET PO PRN ×2 (06:49→13:07)
[2017-11-18 07:16] LABS: PHOSPHORUS 3.8 mg/dL (2.5-4.9)
[2017-11-18 07:26] LABS: HEMATOCRIT 29.3 % (42.0-52.0); HEMOGLOBIN 9.1 g/dL (14.0-18.0); MEAN CORPUSCULAR HEMOGLOBIN 26.4 pg (28.0-32.0); MEAN CORPUSCULAR VOLUME 85.3 fL (80.0-94.0); PLATELET 179 x1000/uL (130-400); RED BLOOD CELL COUNT 3.43 mill/uL (4.7-6.1); RED CELL DISTRIBUTION WIDTH 19.2 % (11.6-14.6)
[2017-11-18] MEDS: INSULIN LISPRO 100 UNITS/ML SUBCUT SCH ×4 (08:20→21:00)
[2017-11-18] MEDS: BLOOD SUGAR DIAGNOSTIC STRIP TEST SCH ×4 (08:29→21:00)
[2017-11-18] MEDS: DOCUSATE SODIUM 100MG CAPSULE PO SCH ×2 (09:07→17:35)
[2017-11-18] MEDS: MAGNESIUM 1 G PREMIX 100 ML IV SCH ×2 (09:54→18:44)
[2017-11-18] MEDS: VANCOMYCIN 1,250 MG in SODIUM CHLORIDE 0.9% 250 ML IV SCH (10:01)
[2017-11-18] MEDS ORDERED: KCL 10MEQ/50ML PREMIX 200 ML IV PRN (11:30)
[2017-11-18] MEDS ORDERED: KCL 10MEQ/50ML PREMIX 150 ML IV PRN (11:30)
[2017-11-18] MEDS: KCL 10MEQ/50ML PREMIX 100 ML IV PRN ×2 (11:57→11:58)
[2017-11-18] MEDS: AMLODIPINE 5MG TABLET PO SCH ×2 (13:00→21:00)
[2017-11-18] MEDS: ONDANSETRON HCL 4MG/2ML VIAL IV PRN (13:07)
[2017-11-18] MEDS: FUROSEMIDE 40MG/4ML VIAL IVP SCH (17:35)
[2017-11-18] MEDS: CEFTRIAXONE 2 G in SODIUM CHLORIDE 0.9% 50 ML IV SCH (20:05)
[2017-11-18] MEDS: HYDROCODONE/ACETAMINOPHEN 5/325MG TABLET PO PRN (21:12)
[2017-11-18] MEDS: INSULIN GLARGINE UD 100 UNITS/ML SYR SUBCUT SCH (22:00)
[2017-11-18 22:48] LABS: AMYLASE 51 IU/L (25-115)
[2017-11-19] VITALS (20 sets, daily range): BP systolic 119–166; BP diastolic 62–116
[2017-11-19] MEDS: IPRATROPIUM BROMIDE (0.02%) 0.5MG/2.5ML NEB HHN SCH ×4 (03:49→20:29)
[2017-11-19] MEDS: HYDROCODONE/ACETAMINOPHEN 5/325MG TABLET PO PRN ×2 (03:56→22:05)
[2017-11-19 05:05] LABS: INR 3.7
[2017-11-19 05:10] LABS: PHOSPHORUS 2.9 mg/dL (2.5-4.9)
[2017-11-19] MEDS ORDERED: MAGNESIUM 1 G PREMIX 100 ML IV SCH (05:30)
[2017-11-19 05:32] LABS: BASOPHILS % 0.5 % (0.0-2.0); EOSINOPHILS % 0.9 % (0.0-5.0); HEMATOCRIT. 31.3 % (42.0-52.0); HEMOGLOBIN. 9.9 g/dL (14.0-18.0); LYMPHOCYTES % 11.3 % (20.0-50.0); MEAN CORPUSCULAR VOLUME 85.3 fL (80.0-94.0); MONOCYTES % 6.1 % (2.0-8.0); NEUTROPHILS % 81.2 % (40.0-76.0); PLATELET 274 x1000/uL (130-400); RED BLOOD CELL COUNT 3.67 mill/uL (4.7-6.1); RED CELL DISTRIBUTION WIDTH 19.5 % (11.6-14.6)
[2017-11-19] MEDS: MAGNESIUM 1 G PREMIX 100 ML IV SCH (05:41)
[2017-11-19] MEDS: INSULIN LISPRO 100 UNITS/ML SUBCUT SCH ×4 (07:45→21:26)
[2017-11-19] MEDS: BLOOD SUGAR DIAGNOSTIC STRIP TEST SCH ×4 (07:45→21:27)
[2017-11-19] MEDS: AMLODIPINE 5MG TABLET PO SCH ×2 (08:50→21:00)
[2017-11-19] MEDS: FUROSEMIDE 40MG/4ML VIAL IVP SCH ×2 (08:50→17:22)
[2017-11-19] MEDS: DOCUSATE SODIUM 100MG CAPSULE PO SCH ×2 (08:50→17:21)
[2017-11-19] MEDS ORDERED: LACTULOSE 20G/30ML UDC PO PRN (09:15)
[2017-11-19] MEDS ORDERED: BISACODYL 10MG SUPP PR PRN (09:15)
[2017-11-19] MEDS ORDERED: HEMORRHOIDAL SUPP PR SCH (10:30)
[2017-11-19] MEDS: VANCOMYCIN 1,250 MG in SODIUM CHLORIDE 0.9% 250 ML IV SCH (12:15)
[2017-11-19] MEDS: MAGNESIUM/ALUMINUM HYDROXIDE/SIMETHICONE 30ML UDC PO PRN (15:12)
[2017-11-19] MEDS ORDERED: WARFARIN SODIUM 1MG TABLET PO NR (18:00)
[2017-11-19] MEDS: INSULIN GLARGINE UD 100 UNITS/ML SYR SUBCUT SCH (21:27)
[2017-11-19] MEDS: CEFTRIAXONE 2 G in SODIUM CHLORIDE 0.9% 50 ML IV SCH (21:47)
[2017-11-20] VITALS (15 sets, daily range): BP systolic 111–156; BP diastolic 48–81
[2017-11-20] MEDS: IPRATROPIUM BROMIDE (0.02%) 0.5MG/2.5ML NEB HHN SCH ×3 (00:12→20:34)
[2017-11-20] MEDS: BLOOD SUGAR DIAGNOSTIC STRIP TEST SCH ×4 (06:50→20:16)
[2017-11-20 07:08] LABS: BASOPHILS % 0.3 % (0.0-2.0); EOSINOPHILS % 0.9 % (0.0-5.0); HEMATOCRIT. 32.5 % (42.0-52.0); HEMOGLOBIN. 10.1 g/dL (14.0-18.0); LYMPHOCYTES % 9.7 % (20.0-50.0); MEAN CORPUSCULAR HEMOGLOBIN 26.7 pg (28.0-32.0); MEAN CORPUSCULAR VOLUME 85.4 fL (80.0-94.0); MEAN PLATELET VOLUME 6.8 fl (7.4-10.4); MONOCYTES % 6.7 % (2.0-8.0); NEUTROPHILS % 82.4 % (40.0-76.0); PLATELET 256 x1000/uL (130-400); RED BLOOD CELL COUNT 3.81 mill/uL (4.7-6.1); RED CELL DISTRIBUTION WIDTH 19.1 % (11.6-14.6)
[2017-11-20 07:13] LABS: INR 2.9; PROTHROMBIN TIME 30.4 sec (9.4-11.6)
[2017-11-20] MEDS: INSULIN LISPRO 100 UNITS/ML SUBCUT SCH ×4 (07:20→20:17)
[2017-11-20 08:04] LABS: CHLORIDE 105 mEq/L (98-107)
[2017-11-20 08:11] LABS: PHOSPHORUS 2.3 mg/dL (2.5-4.9)
[2017-11-20] MEDS: FUROSEMIDE 40MG/4ML VIAL IVP SCH ×2 (09:37→18:12)
[2017-11-20] MEDS: DOCUSATE SODIUM 100MG CAPSULE PO SCH ×2 (09:37→18:11)
[2017-11-20] MEDS: AMLODIPINE 5MG TABLET PO SCH ×2 (09:39→21:00)
[2017-11-20] MEDS: VANCOMYCIN 1,250 MG in SODIUM CHLORIDE 0.9% 250 ML IV SCH (11:49)
[2017-11-20] MEDS: IPRATROPIUM/ALBUTEROL 0.5-3(2.5)MG/3ML NEB HHN PRN (15:22)
[2017-11-20] MEDS ORDERED: WARFARIN SODIUM 3MG TABLET PO SCH (18:00)
[2017-11-20] MEDS: CEFTRIAXONE 2 G in SODIUM CHLORIDE 0.9% 50 ML IV SCH (20:15)
[2017-11-20] MEDS: INSULIN GLARGINE UD 100 UNITS/ML SYR SUBCUT SCH (22:29)
[2017-11-21] VITALS (15 sets, daily range): BP systolic 122–154; BP diastolic 53–99
[2017-11-21] MEDS: IPRATROPIUM BROMIDE (0.02%) 0.5MG/2.5ML NEB HHN SCH ×4 (02:10→20:21)
[2017-11-21] MEDS: BLOOD SUGAR DIAGNOSTIC STRIP TEST SCH ×4 (06:52→20:18)
[2017-11-21] MEDS: INSULIN LISPRO 100 UNITS/ML SUBCUT SCH ×4 (06:52→21:00)
[2017-11-21] MEDS: FUROSEMIDE 40MG/4ML VIAL IVP SCH ×2 (08:07→16:52)
[2017-11-21] MEDS: DOCUSATE SODIUM 100MG CAPSULE PO SCH ×2 (08:07→17:29)
[2017-11-21] MEDS: ONDANSETRON HCL 4MG/2ML VIAL IV PRN (08:07)
[2017-11-21] MEDS: AMLODIPINE 5MG TABLET PO SCH ×2 (08:11→21:07)
[2017-11-21] MEDS: POTASSIUM-SODIUM PHOSPHATE POWDER PACKET PO SCH ×2 (09:40→17:29)
[2017-11-21 11:04] LABS: BASOPHILS % 0.9 % (0.0-2.0); EOSINOPHILS % 0.7 % (0.0-5.0); HEMATOCRIT. 29.6 % (42.0-52.0); HEMOGLOBIN. 9.6 g/dL (14.0-18.0); LYMPHOCYTES % 9.2 % (20.0-50.0); MEAN CORPUSCULAR HEMOGLOBIN 26.8 pg (28.0-32.0); MEAN CORPUSCULAR VOLUME 82.8 fL (80.0-94.0); MEAN PLATELET VOLUME 6.3 fl (7.4-10.4); MONOCYTES % 5.8 % (2.0-8.0); NEUTROPHILS % 83.4 % (40.0-76.0); PLATELET 291 x1000/uL (130-400); RED BLOOD CELL COUNT 3.57 mill/uL (4.7-6.1); RED CELL DISTRIBUTION WIDTH 19.3 % (11.6-14.6)
[2017-11-21 11:08] LABS: INR 2.4; PROTHROMBIN TIME 24.8 sec (9.4-11.6)
[2017-11-21 11:19] LABS: CHLORIDE 102 mEq/L (98-107)
[2017-11-21 11:26] LABS: PHOSPHORUS 2.3 mg/dL (2.5-4.9)
[2017-11-21] MEDS: CLOTRIMAZOLE 10MG TROCHE MM SCH ×4 (12:09→21:06)
[2017-11-21] MEDS ORDERED: WARFARIN SODIUM 5MG TABLET PO NR (18:00)
[2017-11-21] MEDS: CEFTRIAXONE 2 G in SODIUM CHLORIDE 0.9% 50 ML IV SCH (20:18)
[2017-11-21] MEDS: INSULIN GLARGINE UD 100 UNITS/ML SYR SUBCUT SCH (21:09)
[2017-11-22] VITALS (11 sets, daily range): BP systolic 117–146; BP diastolic 54–90
[2017-11-22] MEDS: BLOOD SUGAR DIAGNOSTIC STRIP TEST SCH ×4 (06:11→21:13)
[2017-11-22] MEDS: CLOTRIMAZOLE 10MG TROCHE MM SCH ×5 (06:11→21:10)
[2017-11-22 06:39] LABS: BASOPHILS % 0.8 % (0.0-2.0); EOSINOPHILS % 0.7 % (0.0-5.0); HEMATOCRIT. 30.1 % (42.0-52.0); HEMOGLOBIN. 9.5 g/dL (14.0-18.0); LYMPHOCYTES % 10.8 % (20.0-50.0); MEAN CORPUSCULAR VOLUME 82.8 fL (80.0-94.0); MEAN PLATELET VOLUME 6.4 fl (7.4-10.4); MONOCYTES % 7.1 % (2.0-8.0); NEUTROPHILS % 80.6 % (40.0-76.0); PLATELET 299 x1000/uL (130-400); RED BLOOD CELL COUNT 3.63 mill/uL (4.7-6.1); RED CELL DISTRIBUTION WIDTH 18.7 % (11.6-14.6)
[2017-11-22 06:44] LABS: INR 2.9; PROTHROMBIN TIME 29.6 sec (9.4-11.6)
[2017-11-22] MEDS: INSULIN LISPRO 100 UNITS/ML SUBCUT SCH ×4 (07:20→21:27)
[2017-11-22 07:50] LABS: CHLORIDE 101 mEq/L (98-107)
[2017-11-22 07:54] LABS: PHOSPHORUS 2.1 mg/dL (2.5-4.9)
[2017-11-22] MEDS: IPRATROPIUM BROMIDE (0.02%) 0.5MG/2.5ML NEB HHN SCH ×3 (08:59→20:30)
[2017-11-22] MEDS: POTASSIUM-SODIUM PHOSPHATE POWDER PACKET PO SCH ×2 (09:34→17:31)
[2017-11-22] MEDS: FUROSEMIDE 40MG/4ML VIAL IVP SCH ×2 (09:34→16:48)
[2017-11-22] MEDS: DOCUSATE SODIUM 100MG CAPSULE PO SCH ×2 (09:34→17:32)
[2017-11-22] MEDS: AMLODIPINE 5MG TABLET PO SCH (09:35)
[2017-11-22] MEDS: LOSARTAN POTASSIUM 25 MG TABLET PO SCH ×2 (12:30→21:10)
[2017-11-22] MEDS: SPIRONOLACTONE 25MG TABLET PO SCH (12:31)
[2017-11-22] MEDS ORDERED: WARFARIN SODIUM 4MG TABLET PO NR (18:00)
[2017-11-22] MEDS: MAGNESIUM/ALUMINUM HYDROXIDE/SIMETHICONE 30ML UDC PO PRN (21:10)
[2017-11-22] MEDS: CEFTRIAXONE 2 G in SODIUM CHLORIDE 0.9% 50 ML IV SCH (21:11)
[2017-11-22] MEDS: INSULIN GLARGINE UD 100 UNITS/ML SYR SUBCUT SCH (21:26)
[2017-11-23] VITALS (11 sets, daily range): BP systolic 116–136; BP diastolic 68–94
[2017-11-23] MEDS: IPRATROPIUM/ALBUTEROL 0.5-3(2.5)MG/3ML NEB HHN PRN (00:15)
[2017-11-23] MEDS: BLOOD SUGAR DIAGNOSTIC STRIP TEST SCH ×4 (06:22→22:25)
[2017-11-23] MEDS: CLOTRIMAZOLE 10MG TROCHE MM SCH ×5 (06:47→20:24)
[2017-11-23] MEDS: INSULIN LISPRO 100 UNITS/ML SUBCUT SCH ×4 (07:20→22:31)
[2017-11-23 07:36] LABS: INR 3.6; PROTHROMBIN TIME 37.6 sec (9.4-11.6)
[2017-11-23 07:52] LABS: CHLORIDE 102 mEq/L (98-107)
[2017-11-23 08:01] LABS: PHOSPHORUS 1.9 mg/dL (2.5-4.9)
[2017-11-23 08:10] LABS: EOSINOPHILS % 0.7 % (0.0-5.0); HEMATOCRIT. 29.8 % (42.0-52.0); HEMOGLOBIN. 9.4 g/dL (14.0-18.0); LYMPHOCYTES % 12.5 % (20.0-50.0); MEAN CORPUSCULAR HEMOGLOBIN 25.9 pg (28.0-32.0); MEAN CORPUSCULAR VOLUME 81.9 fL (80.0-94.0); MEAN PLATELET VOLUME 6.4 fl (7.4-10.4); MONOCYTES % 7.1 % (2.0-8.0); NEUTROPHILS % 78.7 % (40.0-76.0); PLATELET 400 x1000/uL (130-400); RED BLOOD CELL COUNT 3.63 mill/uL (4.7-6.1); RED CELL DISTRIBUTION WIDTH 19.1 % (11.6-14.6)
[2017-11-23] MEDS: POTASSIUM-SODIUM PHOSPHATE POWDER PACKET PO SCH ×2 (08:31→16:22)
[2017-11-23] MEDS: FUROSEMIDE 40MG/4ML VIAL IVP SCH ×2 (08:31→16:22)
[2017-11-23] MEDS: DOCUSATE SODIUM 100MG CAPSULE PO SCH ×2 (08:31→16:22)
[2017-11-23] MEDS: SPIRONOLACTONE 25MG TABLET PO SCH ×2 (08:32→18:08)
[2017-11-23] MEDS: LOSARTAN POTASSIUM 25 MG TABLET PO SCH ×2 (08:32→20:24)
[2017-11-23] MEDS: AMLODIPINE 5MG TABLET PO SCH (08:33)
[2017-11-23] MEDS: IPRATROPIUM BROMIDE (0.02%) 0.5MG/2.5ML NEB HHN SCH ×3 (09:26→21:45)
[2017-11-23] MEDS: CEFTRIAXONE 2 G in SODIUM CHLORIDE 0.9% 50 ML IV SCH (20:24)
[2017-11-23] MEDS: MAGNESIUM/ALUMINUM HYDROXIDE/SIMETHICONE 30ML UDC PO PRN (20:37)
[2017-11-23] MEDS: INSULIN GLARGINE UD 100 UNITS/ML SYR SUBCUT SCH (22:32)
[2017-11-24] VITALS (12 sets, daily range): BP systolic 110–152; BP diastolic 69–99
[2017-11-24] MEDS: IPRATROPIUM/ALBUTEROL 0.5-3(2.5)MG/3ML NEB HHN PRN (00:04)
[2017-11-24] MEDS: BLOOD SUGAR DIAGNOSTIC STRIP TEST SCH ×4 (05:54→20:21)
[2017-11-24] MEDS: CLOTRIMAZOLE 10MG TROCHE MM SCH ×5 (06:07→20:21)
[2017-11-24] MEDS: SPIRONOLACTONE 25MG TABLET PO SCH ×2 (06:38→16:28)
[2017-11-24] MEDS ORDERED: LIDOCAINE HCL 1% 20ML VIAL (Pyxis) INJ ONE (06:46)
[2017-11-24] MEDS: INSULIN LISPRO 100 UNITS/ML SUBCUT SCH ×4 (07:20→20:21)
[2017-11-24 07:28] LABS: INR 3.3; PROTHROMBIN TIME 34.1 sec (9.4-11.6)
[2017-11-24 07:33] LABS: BASOPHILS % 1.3 % (0.0-2.0); HEMATOCRIT. 27.6 % (42.0-52.0); HEMOGLOBIN. 8.8 g/dL (14.0-18.0); LYMPHOCYTES % 11.9 % (20.0-50.0); MEAN CORPUSCULAR HEMOGLOBIN 25.9 pg (28.0-32.0); MEAN CORPUSCULAR VOLUME 81.4 fL (80.0-94.0); MEAN PLATELET VOLUME 5.9 fl (7.4-10.4); MONOCYTES % 7.1 % (2.0-8.0); NEUTROPHILS % 78.7 % (40.0-76.0); PLATELET 355 x1000/uL (130-400); RED BLOOD CELL COUNT 3.39 mill/uL (4.7-6.1); RED CELL DISTRIBUTION WIDTH 18.8 % (11.6-14.6)
[2017-11-24 08:17] LABS: CHLORIDE 101 mEq/L (98-107)
[2017-11-24 08:33] LABS: PHOSPHORUS 2.3 mg/dL (2.5-4.9)
[2017-11-24] MEDS: DOCUSATE SODIUM 100MG CAPSULE PO SCH ×2 (08:55→16:27)
[2017-11-24] MEDS: AMLODIPINE 5MG TABLET PO SCH (08:55)
[2017-11-24] MEDS: LOSARTAN POTASSIUM 25 MG TABLET PO SCH ×2 (08:55→20:21)
[2017-11-24] MEDS: FUROSEMIDE 40MG/4ML VIAL IVP SCH ×2 (08:56→16:27)
[2017-11-24] MEDS: POTASSIUM-SODIUM PHOSPHATE POWDER PACKET PO SCH ×2 (08:56→16:28)
[2017-11-24] MEDS: MAGNESIUM/ALUMINUM HYDROXIDE/SIMETHICONE 30ML UDC PO PRN (09:24)
[2017-11-24] MEDS: IPRATROPIUM BROMIDE (0.02%) 0.5MG/2.5ML NEB HHN SCH ×3 (15:10→20:05)
[2017-11-24] MEDS: CEFTRIAXONE 2 G in SODIUM CHLORIDE 0.9% 50 ML IV SCH (20:20)
[2017-11-24] MEDS: INSULIN GLARGINE UD 100 UNITS/ML SYR SUBCUT SCH (21:37)
[2017-11-25] VITALS (10 sets, daily range): BP systolic 125–154; BP diastolic 70–98
[2017-11-25] MEDS: IPRATROPIUM BROMIDE (0.02%) 0.5MG/2.5ML NEB HHN SCH ×4 (03:01→20:03)
[2017-11-25 07:00] LABS: PROTHROMBIN TIME 21.4 sec (9.4-11.6)
[2017-11-25] MEDS: CLOTRIMAZOLE 10MG TROCHE MM SCH ×5 (07:02→21:09)
[2017-11-25] MEDS: BLOOD SUGAR DIAGNOSTIC STRIP TEST SCH ×4 (07:02→21:08)
[2017-11-25 07:11] LABS: BASOPHILS % 1.4 % (0.0-2.0); EOSINOPHILS % 1.3 % (0.0-5.0); HEMATOCRIT. 27.3 % (42.0-52.0); HEMOGLOBIN. 8.8 g/dL (14.0-18.0); LYMPHOCYTES % 16.8 % (20.0-50.0); MEAN CORPUSCULAR HEMOGLOBIN 26.4 pg (28.0-32.0); MEAN CORPUSCULAR VOLUME 81.8 fL (80.0-94.0); MEAN PLATELET VOLUME 6.2 fl (7.4-10.4); MONOCYTES % 7.5 % (2.0-8.0); PLATELET 389 x1000/uL (130-400); RED BLOOD CELL COUNT 3.34 mill/uL (4.7-6.1); RED CELL DISTRIBUTION WIDTH 18.8 % (11.6-14.6)
[2017-11-25 07:40] LABS: CHLORIDE 101 mEq/L (98-107)
[2017-11-25 07:47] LABS: PHOSPHORUS 2.9 mg/dL (2.5-4.9)
[2017-11-25] MEDS: DOCUSATE SODIUM 100MG CAPSULE PO SCH ×2 (08:53→17:16)
[2017-11-25] MEDS: FUROSEMIDE 40MG/4ML VIAL IVP SCH ×2 (08:53→17:16)
[2017-11-25] MEDS: LOSARTAN POTASSIUM 25 MG TABLET PO SCH ×2 (08:53→21:09)
[2017-11-25] MEDS: AMLODIPINE 5MG TABLET PO SCH (08:54)
[2017-11-25] MEDS: SPIRONOLACTONE 25MG TABLET PO SCH ×2 (08:54→17:16)
[2017-11-25] MEDS: INSULIN LISPRO 100 UNITS/ML SUBCUT SCH ×4 (08:56→21:07)
[2017-11-25] MEDS: CEFTRIAXONE 2 G in SODIUM CHLORIDE 0.9% 50 ML IV SCH (20:57)
[2017-11-25] MEDS: INSULIN GLARGINE UD 100 UNITS/ML SYR SUBCUT SCH (21:08)
[2017-11-26] VITALS (13 sets, daily range): BP systolic 112–143; BP diastolic 53–92
[2017-11-26] MEDS: IPRATROPIUM BROMIDE (0.02%) 0.5MG/2.5ML NEB HHN SCH ×4 (02:15→21:03)
[2017-11-26 05:39] LABS: INR 1.5; PROTHROMBIN TIME 15.2 sec (9.4-11.6)
[2017-11-26 06:18] LABS: CHLORIDE 102 mEq/L (98-107)
[2017-11-26 06:27] LABS: BASOPHILS % 1.5 % (0.0-2.0); EOSINOPHILS % 1.1 % (0.0-5.0); HEMATOCRIT. 26.1 % (42.0-52.0); HEMOGLOBIN. 8.5 g/dL (14.0-18.0); LYMPHOCYTES % 13.7 % (20.0-50.0); MEAN CORPUSCULAR HEMOGLOBIN 26.5 pg (28.0-32.0); MEAN CORPUSCULAR VOLUME 81.1 fL (80.0-94.0); MEAN PLATELET VOLUME 5.9 fl (7.4-10.4); MONOCYTES % 7.4 % (2.0-8.0); NEUTROPHILS % 76.3 % (40.0-76.0); PLATELET 360 x1000/uL (130-400); RED BLOOD CELL COUNT 3.21 mill/uL (4.7-6.1); RED CELL DISTRIBUTION WIDTH 18.9 % (11.6-14.6)
[2017-11-26] MEDS: CLOTRIMAZOLE 10MG TROCHE MM SCH ×2 (06:31→10:37)
[2017-11-26] MEDS: BLOOD SUGAR DIAGNOSTIC STRIP TEST SCH ×4 (06:31→21:32)
[2017-11-26] MEDS: INSULIN LISPRO 100 UNITS/ML SUBCUT SCH ×4 (07:20→21:48)
[2017-11-26] MEDS: SPIRONOLACTONE 25MG TABLET PO SCH ×2 (07:43→17:04)
[2017-11-26] MEDS: LOSARTAN POTASSIUM 25 MG TABLET PO SCH ×2 (08:23→21:44)
[2017-11-26] MEDS: AMLODIPINE 5MG TABLET PO SCH (08:23)
[2017-11-26] MEDS: DOCUSATE SODIUM 100MG CAPSULE PO SCH ×2 (08:23→17:03)
[2017-11-26] MEDS: FUROSEMIDE 40MG/4ML VIAL IVP SCH ×2 (08:23→17:04)
[2017-11-26] MEDS ORDERED: POTASSIUM CHLORIDE 20MEQ TABLET SR PO NR (10:30)
[2017-11-26] MEDS ORDERED: ENOXAPARIN 60MG/0.6ML SYR SUBCUT NR (10:45)
[2017-11-26] MEDS ORDERED: ZOLPIDEM TARTRATE 5MG TABLET PO PRN (17:30)
[2017-11-26] MEDS ORDERED: LORAZEPAM 0.5MG TABLET PO PRN (17:30)
[2017-11-26] MEDS ORDERED: WARFARIN SODIUM 5MG TABLET PO NR (18:00)
[2017-11-26] MEDS: CEFTRIAXONE 2 G in SODIUM CHLORIDE 0.9% 50 ML IV SCH (19:44)
[2017-11-26] MEDS: INSULIN GLARGINE UD 100 UNITS/ML SYR SUBCUT SCH (21:50)
[2017-11-27] VITALS (12 sets, daily range): BP systolic 100–153; BP diastolic 50–89
[2017-11-27] MEDS: INSULIN LISPRO 100 UNITS/ML SUBCUT SCH ×4 (05:32→21:03)
[2017-11-27] MEDS: BLOOD SUGAR DIAGNOSTIC STRIP TEST SCH ×4 (05:32→20:27)
[2017-11-27] MEDS: SPIRONOLACTONE 25MG TABLET PO SCH ×2 (06:40→17:01)
[2017-11-27] MEDS: FUROSEMIDE 40MG/4ML VIAL IVP SCH ×2 (08:23→17:01)
[2017-11-27] MEDS: AMLODIPINE 5MG TABLET PO SCH (08:23)
[2017-11-27] MEDS: LOSARTAN POTASSIUM 25 MG TABLET PO SCH ×2 (08:23→20:34)
[2017-11-27] MEDS: DOCUSATE SODIUM 100MG CAPSULE PO SCH ×2 (08:23→17:00)
[2017-11-27 08:24] LABS: INR 1.3
[2017-11-27 08:42] LABS: BASOPHILS % 1.9 % (0.0-2.0); HEMATOCRIT. 27.8 % (42.0-52.0); HEMOGLOBIN. 8.8 g/dL (14.0-18.0); LYMPHOCYTES % 15.1 % (20.0-50.0); MEAN CORPUSCULAR HEMOGLOBIN 26.1 pg (28.0-32.0); MEAN CORPUSCULAR VOLUME 82.3 fL (80.0-94.0); MEAN PLATELET VOLUME 6.2 fl (7.4-10.4); MONOCYTES % 8.5 % (2.0-8.0); NEUTROPHILS % 73.5 % (40.0-76.0); PLATELET 346 x1000/uL (130-400); RED BLOOD CELL COUNT 3.39 mill/uL (4.7-6.1); RED CELL DISTRIBUTION WIDTH 19.2 % (11.6-14.6)
[2017-11-27] MEDS: IPRATROPIUM BROMIDE (0.02%) 0.5MG/2.5ML NEB HHN SCH ×3 (08:52→22:22)
[2017-11-27 09:11] LABS: CHLORIDE 105 mEq/L (98-107)
[2017-11-27 09:26] LABS: PHOSPHORUS 3.2 mg/dL (2.5-4.9)
[2017-11-27] MEDS: ENOXAPARIN 80MG/0.8ML SYR SUBCUT SCH ×2 (09:54→20:37)
[2017-11-27] MEDS ORDERED: LORAZEPAM 0.5MG TABLET PO PRN (11:00)
[2017-11-27] MEDS ORDERED: ZOLPIDEM TARTRATE 5MG TABLET PO PRN (11:30)
[2017-11-27] MEDS ORDERED: LORAZEPAM 2MG/ML CPJ IV PRN (11:30)
[2017-11-27] MEDS ORDERED: WARFARIN SODIUM 7.5MG TABLET PO NR (18:00)
[2017-11-27] MEDS: CEFTRIAXONE 2 G in SODIUM CHLORIDE 0.9% 50 ML IV SCH (20:17)
[2017-11-27] MEDS: INSULIN GLARGINE UD 100 UNITS/ML SYR SUBCUT SCH (21:04)
[2017-11-28] VITALS (7 sets, daily range): BP systolic 118–146; BP diastolic 81–90
[2017-11-28] MEDS: BLOOD SUGAR DIAGNOSTIC STRIP TEST SCH ×3 (05:34→16:13)
[2017-11-28] MEDS: INSULIN LISPRO 100 UNITS/ML SUBCUT SCH ×3 (05:34→16:34)
[2017-11-28] MEDS: SPIRONOLACTONE 25MG TABLET PO SCH ×2 (05:57→16:36)
[2017-11-28 06:55] LABS: INR 1.7; PROTHROMBIN TIME 18.1 sec (9.4-11.6)
[2017-11-28 07:00] LABS: BASOPHILS % 2.2 % (0.0-2.0); EOSINOPHILS % 1.8 % (0.0-5.0); HEMATOCRIT. 26.9 % (42.0-52.0); HEMOGLOBIN. 8.7 g/dL (14.0-18.0); LYMPHOCYTES % 23.1 % (20.0-50.0); MEAN CORPUSCULAR HEMOGLOBIN 26.3 pg (28.0-32.0); MEAN CORPUSCULAR VOLUME 81.5 fL (80.0-94.0); MEAN PLATELET VOLUME 5.9 fl (7.4-10.4); MONOCYTES % 9.1 % (2.0-8.0); NEUTROPHILS % 63.8 % (40.0-76.0); PLATELET 433 x1000/uL (130-400); RED CELL DISTRIBUTION WIDTH 19.1 % (11.6-14.6)
[2017-11-28 08:04] LABS: CHLORIDE 106 mEq/L (98-107)
[2017-11-28] MEDS: IPRATROPIUM BROMIDE (0.02%) 0.5MG/2.5ML NEB HHN SCH ×2 (08:25→14:43)
[2017-11-28] MEDS ORDERED: WARFARIN SODIUM 5MG TABLET PO NR (08:29)
[2017-11-28] MEDS: DOCUSATE SODIUM 100MG CAPSULE PO SCH ×2 (08:57→16:36)
[2017-11-28] MEDS: AMLODIPINE 5MG TABLET PO SCH (08:57)
[2017-11-28] MEDS: LOSARTAN POTASSIUM 25 MG TABLET PO SCH (08:57)
[2017-11-28] MEDS: ENOXAPARIN 80MG/0.8ML SYR SUBCUT SCH (09:00)
[2017-11-28] MEDS ORDERED: HYDROCORTISONE 1% RECTAL CREAM 30GM PR SCH (09:00)
[2017-11-28] MEDS ORDERED: FUROSEMIDE 40MG/4ML VIAL IVP SCH (09:00)
[2017-11-28] MEDS ORDERED: HYDROCORTISONE 1% CREAM 30GM TOP SCH (15:00)
[2017-11-28] MEDS ORDERED: CEFTRIAXONE 2 G in SODIUM CHLORIDE 0.9% 50 ML IV SCH ×2 (15:00→16:00)
[2017-11-28] MEDS ORDERED: CEFTRIAXONE 2 G PREMIX 50 ML IV SCH (16:00)
[2017-11-28 16:38] LABS: CLARITY URINE CLEAR (CLEAR); COLOR URINE YELLOW (YELLOW); KETONES URINE NEGATIVE (NEGATIVE); LEUKOCYTE ESTERASE URINE NEGATIVE (NEGATIVE); NITRITE URINE NEGATIVE (NEGATIVE); OCCULT BLOOD URINE NEGATIVE (NEGATIVE); PH URINE 7.5 (4.5-8.0); PROTEIN URINE 1+ (NEGATIVE); UROBILINOGEN URINE 0.2 E.U./dL (0.2-1.0)
== END 2017-11-28 18:00 | disposition home health service (06) | DRG 853 ==
LOC: 3WST 16:50 → CVICU 11-12 17:27 → 3WST 11-19 16:30
PROVIDERS: ADMIT Internal Medicine Critical Care Medicine; ATTEND Internal Medicine Critical Care Medicine
PROC: 5A02110 Assistance with Cardiac Output using Balloon Pump, Intermittent (ICD-10-PCS; 2017-11-13)
PROC: 5A1221Z Performance of Cardiac Output, Continuous (ICD-10-PCS; 2017-11-13)
PROC: 0W9930Z Drainage of Right Pleural Cavity with Drainage Device, Percutaneous Approach (ICD-10-PCS; 2017-11-13)
PROC: 4A023N7 Measurement of Cardiac Sampling and Pressure, Left Heart, Percutaneous Approach (ICD-10-PCS; 2017-11-13)
PROC: 02HV33Z Insertion of Infusion Device into Superior Vena Cava, Percutaneous Approach (ICD-10-PCS; 2017-11-13)
PROC: B2111ZZ Fluoroscopy of Multiple Coronary Arteries using Low Osmolar Contrast (ICD-10-PCS; 2017-11-13)
PROC: B246ZZ4 Ultrasonography of Right and Left Heart, Transesophageal (ICD-10-PCS; 2017-11-13)
PROC: 5A1945Z Respiratory Ventilation, 24-96 Consecutive Hours (ICD-10-PCS; 2017-11-13)
PROC: B548ZZA Ultrasonography of Superior Vena Cava, Guidance (ICD-10-PCS; 2017-11-13)
PROC: 06HY33Z Insertion of Infusion Device into Lower Vein, Percutaneous Approach (ICD-10-PCS; 2017-11-13)
PROC: 30233L1 Transfusion of Nonautologous Fresh Plasma into Peripheral Vein, Percutaneous Approach (ICD-10-PCS; 2017-11-13)
PROC: 30233R1 Transfusion of Nonautologous Platelets into Peripheral Vein, Percutaneous Approach (ICD-10-PCS; 2017-11-13)
PROC: 30233K1 Transfusion of Nonautologous Frozen Plasma into Peripheral Vein, Percutaneous Approach (ICD-10-PCS; 2017-11-13)
PROC: 0BH17EZ Insertion of Endotracheal Airway into Trachea, Via Natural or Artificial Opening (ICD-10-PCS; 2017-11-13)
PROC: 5A1D70Z Performance of Urinary Filtration, Intermittent, Less than 6 Hours Per Day (ICD-10-PCS; 2017-11-13)
PROC: 02RG08Z Replacement of Mitral Valve with Zooplastic Tissue, Open Approach (ICD-10-PCS; principal; 2017-11-13 16:00)
PROC: 30233N1 Transfusion of Nonautologous Red Blood Cells into Peripheral Vein, Percutaneous Approach (ICD-10-PCS; 2017-11-14)
PROC: 5A1D70Z Performance of Urinary Filtration, Intermittent, Less than 6 Hours Per Day (ICD-10-PCS; 2017-11-14)
PROC: 02HV33Z Insertion of Infusion Device into Superior Vena Cava, Percutaneous Approach (ICD-10-PCS; 2017-11-24)
PROC: B548ZZA Ultrasonography of Superior Vena Cava, Guidance (ICD-10-PCS; 2017-11-24)
DX: A40.8 Other streptococcal sepsis (principal); J96.00 Acute respiratory failure, unspecified whether with hypoxia or hypercapnia; I21.4 Non-ST elevation (NSTEMI) myocardial infarction; I33.0 Acute and subacute infective endocarditis; E43 Unspecified severe protein-calorie malnutrition; N17.0 Acute kidney failure with tubular necrosis; R65.20 Severe sepsis without septic shock; D68.9 Coagulation defect, unspecified; E11.22 Type 2 diabetes mellitus with diabetic chronic kidney disease; I13.0 Hypertensive heart and chronic kidney disease with heart failure and stage 1 through stage 4 chronic kidney disease, or unspecified chronic kidney disease; N13.8 Other obstructive and reflux uropathy; E87.1 Hypo-osmolality and hyponatremia; I42.9 Cardiomyopathy, unspecified; I50.9 Heart failure, unspecified; E83.42 Hypomagnesemia; D69.6 Thrombocytopenia, unspecified; E87.5 Hyperkalemia; N18.2 Chronic kidney disease, stage 2 (mild); D64.9 Anemia, unspecified; E11.65 Type 2 diabetes mellitus with hyperglycemia; E83.39 Other disorders of phosphorus metabolism; E83.51 Hypocalcemia; G47.30 Sleep apnea, unspecified; E66.01 Morbid (severe) obesity due to excess calories; E78.1 Pure hyperglyceridemia; I05.9 Rheumatic mitral valve disease, unspecified; I87.2 Venous insufficiency (chronic) (peripheral); K59.00 Constipation, unspecified; Z79.01 Long term (current) use of anticoagulants; Z79.4 Long term (current) use of insulin; Z82.3 Family history of stroke; Z82.49 Family history of ischemic heart disease and other diseases of the circulatory system; Z83.3 Family history of diabetes mellitus; Z68.31 Body mass index [BMI] 31.0-31.9, adult
CPT/HCPCS: 33967; 36415; 36556; 36569; 36600; 71045; 71250; 74176; 76700; 76937; 80048; 80053; 80061; 80076; 80202; 81003; 82150; 82248; 82330; 82375; 82550; 82553; 82570; 82805; 82962; 83036; 83605; 83690; 83735; 83880; 84100; 84132; 84134; 84156; 84300; 84443; 84478; 84484; 85025; 85027; 85347; 85379; 85520; 85610; 85651; 85730; 86140; 86705; 86709; 86803; 86850; 86900; 86920; 86927; 87040; 87070; 87075; 87077; 87086; 87186; 87205; 87340; 88305; 88311; 92610; 93005; 93306; 93454; 93880; 93970; 93971; 94002; 94003; 94640; 94660; 94664; 97110; 97116; 97163; 97167; 97530; 97535; A4216; A6261; C1725; C1729; C1751; C1752; C1758; C1769; C1887; C1893; C9113; J0171; J0282; J0690; J0696; J1160; J1250; J1642; J1644; J1650; J1815; J1940; J2250; J2270; J2370; J2405; J2704; J3010; J3370; J3475; J3480; J3490; J7030; J7040; J7050; J7060; J7620; L1830; L3908; P9016; P9017; P9034; P9041; P9047; Q9967; A4315

== ENCOUNTER 2021-07-13 10:18 | Inpatient (IN) | payer BC ==
[~2021-07-13] VITALS: Ht 175.3 cm; Wt 92.5 kg
[~2021-07-13 10:18] MED LIST: TIOT4MIS3 IH
[2021-07-13 11:15] LABS: BASOPHILS % 0.3 % (0.0-2.0); EOSINOPHILS % 0.1 % (0.0-5.0); HEMATOCRIT. 35.7 % (42.0-52.0); HEMOGLOBIN. 11.3 g/dL (14.0-18.0); LYMPHOCYTES % 7.4 % (20.0-50.0); MEAN CORPUSCULAR HEMOGLOBIN 23.4 pg (28.0-32.0); MEAN CORPUSCULAR VOLUME 73.8 fL (80.0-94.0); MEAN PLATELET VOLUME 6.2 fl (7.4-10.4); MONOCYTES % 7.6 % (2.0-8.0); NEUTROPHILS % 84.6 % (40.0-76.0); PLATELET 307 x1000/uL (130-400); RED BLOOD CELL COUNT 4.84 mill/uL (4.7-6.1); RED CELL DISTRIBUTION WIDTH 16.5 % (11.6-14.6)
[2021-07-13 11:19] LABS: CHLORIDE 107 mEq/L (98-107)
[2021-07-13 11:53] LABS: D-DIMER 1.34 mg/L FEU (<0.50); INR 2.2; PROTHROMBIN TIME 22.4 sec (9.6-11.0)
[2021-07-13] MEDS ORDERED: SODIUM CHLORIDE 0.9% 1,000 ML IV NR (14:12)
[2021-07-13] MEDS ORDERED: IOHEXOL-350 100 ML BOTTLE ONE (14:12)
[2021-07-13 14:52] LABS: CLARITY URINE CLEAR (CLEAR); COLOR URINE YELLOW (YELLOW); KETONES URINE NEGATIVE (NEGATIVE); LEUKOCYTE ESTERASE URINE NEGATIVE (NEGATIVE); NITRITE URINE NEGATIVE (NEGATIVE); OCCULT BLOOD URINE NEGATIVE (NEGATIVE); PH URINE 5.5 (4.5-8.0); PROTEIN URINE 3+ (NEGATIVE); SPECIFIC GRAVITY URINE 1.023 (1.005-1.030); UROBILINOGEN URINE 0.2 E.U./dL (0.2-1.0)
[2021-07-13 15:11] LABS: *BARBITURATES SCREEN URINE NEGATIVE (NEGATIVE)
[2021-07-13 15:12] LABS: *BENZODIAZEPINES SCREEN URINE NEGATIVE (NEGATIVE); *COCAINE SCREEN URINE NEGATIVE (NEGATIVE); CANNABINOID URINE SCREEN NEGATIVE (NEGATIVE); OPIATES URINE SCREEN NEGATIVE (NEGATIVE)
[2021-07-13 15:13] LABS: *AMPHETAMINES SCREEN URINE NEGATIVE (NEGATIVE); METHADONE URINE SCREEN NEGATIVE (NEGATIVE); PHENCYCLIDINE URINE SCREEN NEGATIVE (NEGATIVE)
[2021-07-13] MEDS ORDERED: IPRATROPIUM/ALBUTEROL 0.5-3(2.5)MG/3ML NEB HHN PRN (16:30)
[2021-07-13 17:15] VITALS: BP 142/76
[2021-07-13 18:12] VITALS: BP 156/80
[2021-07-13] MEDS ORDERED: DEXTROSE 50% WATER 50ML SYRINGE IV PRN (18:15)
[2021-07-13 20:00] VITALS: BP 128/57
[2021-07-13] MEDS: BLOOD SUGAR DIAGNOSTIC STRIP TEST SCH (20:52)
[2021-07-13] MEDS: LOSARTAN POTASSIUM 50 MG TABLET PO SCH (20:54)
[2021-07-13] MEDS: ATORVASTATIN CALCIUM 40MG TABLET PO SCH (20:56)
[2021-07-13] MEDS: HYDROCODONE/ACETAMINOPHEN 5/325MG TABLET PO PRN (20:56)
[2021-07-13] MEDS: AMLODIPINE 5MG TABLET PO SCH (20:56)
[2021-07-13] MEDS: INSULIN LISPRO 100 UNITS/ML SUBCUT SCH (21:04)
[2021-07-13 22:00] VITALS: BP 119/56
[2021-07-14] VITALS (10 sets, daily range): BP systolic 113–151; BP diastolic 57–78
[2021-07-14 06:20] LABS: HEMATOCRIT. 32.8 % (42.0-52.0); HEMOGLOBIN. 10.4 g/dL (14.0-18.0); MEAN CORPUSCULAR HEMOGLOBIN 23.4 pg (28.0-32.0); MEAN PLATELET VOLUME 6.1 fl (7.4-10.4); PLATELET 313 x1000/uL (130-400); RED BLOOD CELL COUNT 4.43 mill/uL (4.7-6.1); RED CELL DISTRIBUTION WIDTH 16.7 % (11.6-14.6)
[2021-07-14] MEDS: BLOOD SUGAR DIAGNOSTIC STRIP TEST SCH ×4 (06:31→20:07)
[2021-07-14 06:35] LABS: INR 2.1; PROTHROMBIN TIME 21.4 sec (9.6-11.0)
[2021-07-14 06:53] LABS: T4 FREE 1.27 ng/dL (0.76-1.46)
[2021-07-14] MEDS: PANTOPRAZOLE SODIUM 40 MG/VIAL IV SCH (08:37)
[2021-07-14] MEDS: LOSARTAN POTASSIUM 50 MG TABLET PO SCH ×2 (08:38→20:05)
[2021-07-14] MEDS: AMLODIPINE 5MG TABLET PO SCH ×2 (08:38→20:05)
[2021-07-14] MEDS: INSULIN LISPRO 100 UNITS/ML SUBCUT SCH ×4 (08:38→21:09)
[2021-07-14] MEDS: HYDROCODONE/ACETAMINOPHEN 5/325MG TABLET PO PRN ×2 (08:55→20:06)
[2021-07-14] MEDS ORDERED: CEFTRIAXONE 2 G PREMIX 50 ML IV SCH (11:45)
[2021-07-14] MEDS ORDERED: NALOXONE HCL 0.4MG/ML VIAL IV PRN (12:00)
[2021-07-14] MEDS: CEFTRIAXONE 2 G in DEXTROSE 5% WATER 50 ML IV SCH (12:56)
[2021-07-14 13:05] LABS: HEPATITIS B SURFACE ANTIGEN NEGATIVE
[2021-07-14] MEDS: LINEZOLID 600 MG PREMIX 300 ML IV SCH (14:40)
[2021-07-14 16:29] LABS: BG BASE EXCESS -6.5 mmol/L (-2.0-2.0); BG CARBOXYHEMOGLOBIN 0.5 % (0.5-1.5); BG DEOXYHEMOGLOBIN 6.4 % (0.0-5.0); BG HCO3 ACT 16.7 mmol/L (22.0-26.0); BG METHEMOGLOBIN 0.2 % (0.0-1.5); BG OXYGEN SATURATION 93.6 % (92.0-98.5); BG OXYHEMOGLOBIN 92.9 % (94.0-97.0); BG PCO2 26.9 mmHg (35.0-45.0); BG PH 7.412 (7.350-7.450); BG PO2 70.9 mmHg (75.0-100.0); BG SAMPLE SITE LEFT RADIAL; BG TOTAL HEMOGLOBIN 11.3 g/dL (12.0-18.0); BG VENT MODE ROOM AIR
[2021-07-14] MEDS: DOCUSATE SODIUM 100MG CAPSULE PO SCH (17:56)
[2021-07-14 18:57] LABS: PLATELET ESTIMATE NORMAL
[2021-07-14] MEDS: ATORVASTATIN CALCIUM 40MG TABLET PO SCH (20:05)
[2021-07-15] VITALS (9 sets, daily range): BP systolic 119–149; BP diastolic 28–77
[2021-07-15] MEDS: LINEZOLID 600 MG PREMIX 300 ML IV SCH ×2 (02:10→13:05)
[2021-07-15] MEDS: BLOOD SUGAR DIAGNOSTIC STRIP TEST SCH ×4 (06:14→21:19)
[2021-07-15 06:22] LABS: PROTHROMBIN TIME 20.3 sec (9.6-11.0)
[2021-07-15 06:34] LABS: BASOPHILS % 0.3 % (0.0-2.0); EOSINOPHILS % 0.6 % (0.0-5.0); HEMOGLOBIN. 9.7 g/dL (14.0-18.0); LYMPHOCYTES % 7.4 % (20.0-50.0); MEAN CORPUSCULAR HEMOGLOBIN 23.4 pg (28.0-32.0); MEAN CORPUSCULAR VOLUME 74.5 fL (80.0-94.0); MEAN PLATELET VOLUME 6.3 fl (7.4-10.4); MONOCYTES % 7.6 % (2.0-8.0); NEUTROPHILS % 84.1 % (40.0-76.0); PLATELET 283 x1000/uL (130-400); RED BLOOD CELL COUNT 4.16 mill/uL (4.7-6.1); RED CELL DISTRIBUTION WIDTH 16.8 % (11.6-14.6)
[2021-07-15] MEDS: INSULIN LISPRO 100 UNITS/ML SUBCUT SCH ×4 (07:20→21:28)
[2021-07-15] MEDS: AMLODIPINE 5MG TABLET PO SCH ×2 (08:47→21:18)
[2021-07-15] MEDS: DOCUSATE SODIUM 100MG CAPSULE PO SCH ×2 (08:47→16:56)
[2021-07-15] MEDS: LOSARTAN POTASSIUM 50 MG TABLET PO SCH ×2 (08:47→21:19)
[2021-07-15] MEDS ORDERED: LIDOCAINE HCL 1% 10 MG/ML 10ML VIAL ONE (08:59)
[2021-07-15] MEDS ORDERED: MIDAZOLAM HCL 2 MG/2 ML VIAL ONE ×2 (10:28→10:41)
[2021-07-15] MEDS ORDERED: FENTANYL CITRATE/PF 50MCG/ML 2ML VIAL ONE ×2 (10:28→10:41)
[2021-07-15] MEDS ORDERED: TETRACAINE/BENZOCAINE/BUTAMBEN 20 GM SPRAY MM ONE (10:29)
[2021-07-15] MEDS ORDERED: LIDOCAINE HCL 2% JELLY 5ML ONE (10:29)
[2021-07-15] MEDS: PANTOPRAZOLE SODIUM 40 MG/VIAL IV SCH (11:55)
[2021-07-15] MEDS: CEFTRIAXONE 2 G in DEXTROSE 5% WATER 50 ML IV SCH (12:04)
[2021-07-15] MEDS: HYDROCODONE/ACETAMINOPHEN 10/325MG TABLET PO PRN ×2 (16:57→23:03)
[2021-07-15] MEDS: ATORVASTATIN CALCIUM 40MG TABLET PO SCH (21:16)
[2021-07-15] MEDS: ENOXAPARIN 40MG/0.4ML SYR SUBCUT SCH (21:20)
[2021-07-16] VITALS (9 sets, daily range): BP systolic 110–131; BP diastolic 52–76
[2021-07-16] MEDS: LINEZOLID 600 MG PREMIX 300 ML IV SCH ×2 (02:36→13:21)
[2021-07-16] MEDS: BLOOD SUGAR DIAGNOSTIC STRIP TEST SCH ×4 (06:25→20:45)
[2021-07-16 07:46] LABS: INR 2.1
[2021-07-16 07:48] LABS: BASOPHILS % 0.4 % (0.0-2.0); EOSINOPHILS % 1.2 % (0.0-5.0); HEMATOCRIT. 34.1 % (42.0-52.0); HEMOGLOBIN. 10.4 g/dL (14.0-18.0); MEAN CORPUSCULAR HEMOGLOBIN 22.9 pg (28.0-32.0); MEAN CORPUSCULAR VOLUME 75.1 fL (80.0-94.0); MEAN PLATELET VOLUME 6.3 fl (7.4-10.4); MONOCYTES % 8.4 % (2.0-8.0); PLATELET 340 x1000/uL (130-400); RED BLOOD CELL COUNT 4.54 mill/uL (4.7-6.1); RED CELL DISTRIBUTION WIDTH 16.7 % (11.6-14.6)
[2021-07-16] MEDS: HYDROCODONE/ACETAMINOPHEN 10/325MG TABLET PO PRN ×3 (08:18→21:03)
[2021-07-16] MEDS: DOCUSATE SODIUM 100MG CAPSULE PO SCH ×2 (08:19→17:26)
[2021-07-16] MEDS: PANTOPRAZOLE SODIUM 40 MG/VIAL IV SCH (08:19)
[2021-07-16] MEDS: ENOXAPARIN 40MG/0.4ML SYR SUBCUT SCH (08:20)
[2021-07-16] MEDS: INSULIN LISPRO 100 UNITS/ML SUBCUT SCH ×4 (08:21→21:10)
[2021-07-16] MEDS: LOSARTAN POTASSIUM 50 MG TABLET PO SCH ×2 (09:00→20:45)
[2021-07-16] MEDS: LIDOCAINE 5% PATCH TOP SCH (10:25)
[2021-07-16] MEDS: CEFTRIAXONE 2 G in DEXTROSE 5% WATER 50 ML IV SCH (13:20)
[2021-07-16] MEDS: CYCLOBENZAPRINE 10MG TABLET PO PRN (15:45)
[2021-07-16] MEDS: AMLODIPINE 5MG TABLET PO SCH ×2 (17:41→20:45)
[2021-07-16] MEDS: ATORVASTATIN CALCIUM 40MG TABLET PO SCH (20:44)
[2021-07-16] MEDS: BACLOFEN 10MG TABLET PO SCH (20:45)
[2021-07-17] VITALS (10 sets, daily range): BP systolic 112–143; BP diastolic 53–79
[2021-07-17] MEDS: LINEZOLID 600 MG PREMIX 300 ML IV SCH ×2 (01:53→14:00)
[2021-07-17] MEDS: HYDROCODONE/ACETAMINOPHEN 10/325MG TABLET PO PRN ×3 (03:14→20:59)
[2021-07-17] MEDS: BLOOD SUGAR DIAGNOSTIC STRIP TEST SCH ×4 (06:09→20:47)
[2021-07-17 07:02] LABS: BASOPHILS % 0.4 % (0.0-2.0); EOSINOPHILS % 1.1 % (0.0-5.0); HEMATOCRIT. 31.5 % (42.0-52.0); HEMOGLOBIN. 9.9 g/dL (14.0-18.0); LYMPHOCYTES % 11.1 % (20.0-50.0); MEAN CORPUSCULAR HEMOGLOBIN 23.7 pg (28.0-32.0); MEAN CORPUSCULAR VOLUME 75.1 fL (80.0-94.0); MEAN PLATELET VOLUME 6.2 fl (7.4-10.4); MONOCYTES % 7.7 % (2.0-8.0); NEUTROPHILS % 79.7 % (40.0-76.0); PLATELET 308 x1000/uL (130-400); RED BLOOD CELL COUNT 4.19 mill/uL (4.7-6.1); RED CELL DISTRIBUTION WIDTH 16.6 % (11.6-14.6)
[2021-07-17 07:57] LABS: INR 1.9; PROTHROMBIN TIME 19.4 sec (9.6-11.0)
[2021-07-17] MEDS: INSULIN LISPRO 100 UNITS/ML SUBCUT SCH ×4 (08:02→20:56)
[2021-07-17] MEDS: LOSARTAN POTASSIUM 50 MG TABLET PO SCH ×2 (08:03→21:06)
[2021-07-17] MEDS: PANTOPRAZOLE SODIUM 40 MG/VIAL IV SCH (08:03)
[2021-07-17] MEDS: AMLODIPINE 5MG TABLET PO SCH ×2 (08:21→20:46)
[2021-07-17] MEDS: LIDOCAINE 5% PATCH TOP SCH (08:23)
[2021-07-17] MEDS: DOCUSATE SODIUM 100MG CAPSULE PO SCH ×2 (08:24→17:40)
[2021-07-17] MEDS: CYCLOBENZAPRINE 10MG TABLET PO PRN ×2 (11:08→21:10)
[2021-07-17] MEDS: CEFTRIAXONE 2 G in DEXTROSE 5% WATER 50 ML IV SCH (12:31)
[2021-07-17] MEDS: BACLOFEN 10MG TABLET PO SCH (20:45)
[2021-07-17] MEDS: ATORVASTATIN CALCIUM 40MG TABLET PO SCH (20:46)
[2021-07-17] MEDS: ENOXAPARIN 40MG/0.4ML SYR SUBCUT SCH (21:00)
[2021-07-17 21:21] LABS: CREATINE KINASE 38 IU/L (39-308)
[2021-07-18] VITALS (12 sets, daily range): BP systolic 116–145; BP diastolic 54–78
[2021-07-18] MEDS: LINEZOLID 600 MG PREMIX 300 ML IV SCH ×2 (03:02→13:12)
[2021-07-18] MEDS: HYDROCODONE/ACETAMINOPHEN 10/325MG TABLET PO PRN ×3 (03:03→21:57)
[2021-07-18] MEDS: BLOOD SUGAR DIAGNOSTIC STRIP TEST SCH ×4 (06:30→21:53)
[2021-07-18 07:47] LABS: BASOPHILS % 0.6 % (0.0-2.0); EOSINOPHILS % 1.6 % (0.0-5.0); HEMOGLOBIN. 9.5 g/dL (14.0-18.0); LYMPHOCYTES % 12.9 % (20.0-50.0); MEAN CORPUSCULAR HEMOGLOBIN 23.6 pg (28.0-32.0); MEAN CORPUSCULAR VOLUME 74.9 fL (80.0-94.0); MONOCYTES % 6.3 % (2.0-8.0); NEUTROPHILS % 78.6 % (40.0-76.0); PLATELET 282 x1000/uL (130-400); RED CELL DISTRIBUTION WIDTH 16.9 % (11.6-14.6)
[2021-07-18 07:53] LABS: INR 1.7; PROTHROMBIN TIME 17.3 sec (9.6-11.0)
[2021-07-18] MEDS: INSULIN LISPRO 100 UNITS/ML SUBCUT SCH ×4 (08:08→21:55)
[2021-07-18] MEDS: DOCUSATE SODIUM 100MG CAPSULE PO SCH ×2 (08:08→17:31)
[2021-07-18] MEDS: PANTOPRAZOLE SODIUM 40 MG/VIAL IV SCH (08:08)
[2021-07-18] MEDS: ENOXAPARIN 40MG/0.4ML SYR SUBCUT SCH (08:09)
[2021-07-18] MEDS: AMLODIPINE 5MG TABLET PO SCH ×2 (08:09→21:53)
[2021-07-18] MEDS: LOSARTAN POTASSIUM 50 MG TABLET PO SCH ×2 (08:09→21:53)
[2021-07-18] MEDS: LIDOCAINE 5% PATCH TOP SCH (08:10)
[2021-07-18] MEDS ORDERED: SODIUM POLYSTYRENE SULFONATE 15 G/60 ML BOT PO NR (11:30)
[2021-07-18] MEDS: THEOPHYLLINE ANHYDROUS 80 MG/15 ML 120ML PO SCH (17:32)
[2021-07-18] MEDS: BACLOFEN 10MG TABLET PO SCH (21:53)
[2021-07-18] MEDS: ATORVASTATIN CALCIUM 40MG TABLET PO SCH (21:53)
[2021-07-18] MEDS: ENOXAPARIN 60MG/0.6ML SYR SUBCUT SCH (21:54)
[2021-07-18] MEDS: CYCLOBENZAPRINE 10MG TABLET PO PRN (21:56)
[2021-07-19] VITALS (12 sets, daily range): BP systolic 99–146; BP diastolic 58–81
[2021-07-19] MEDS: LINEZOLID 600 MG PREMIX 300 ML IV SCH ×3 (01:42→21:10)
[2021-07-19] MEDS: BLOOD SUGAR DIAGNOSTIC STRIP TEST SCH ×4 (07:18→21:00)
[2021-07-19 07:25] LABS: INR 1.5; PROTHROMBIN TIME 15.8 sec (9.6-11.0)
[2021-07-19 07:33] LABS: BASOPHILS % 0.5 % (0.0-2.0); EOSINOPHILS % 1.2 % (0.0-5.0); HEMATOCRIT. 33.3 % (42.0-52.0); HEMOGLOBIN. 10.5 g/dL (14.0-18.0); LYMPHOCYTES % 10.7 % (20.0-50.0); MEAN CORPUSCULAR HEMOGLOBIN 23.8 pg (28.0-32.0); NEUTROPHILS % 82.6 % (40.0-76.0); PLATELET 303 x1000/uL (130-400); RED BLOOD CELL COUNT 4.44 mill/uL (4.7-6.1); RED CELL DISTRIBUTION WIDTH 16.8 % (11.6-14.6)
[2021-07-19] MEDS: PANTOPRAZOLE SODIUM 40 MG/VIAL IV SCH (08:31)
[2021-07-19] MEDS: ENOXAPARIN 60MG/0.6ML SYR SUBCUT SCH ×2 (08:32→21:11)
[2021-07-19] MEDS: LOSARTAN POTASSIUM 50 MG TABLET PO SCH ×2 (08:32→21:16)
[2021-07-19] MEDS: DOCUSATE SODIUM 100MG CAPSULE PO SCH ×2 (08:32→16:44)
[2021-07-19] MEDS: AMLODIPINE 5MG TABLET PO SCH ×2 (08:32→21:16)
[2021-07-19] MEDS: INSULIN LISPRO 100 UNITS/ML SUBCUT SCH ×4 (08:33→21:13)
[2021-07-19] MEDS: LIDOCAINE 5% PATCH TOP SCH (08:40)
[2021-07-19] MEDS: THEOPHYLLINE ANHYDROUS 80 MG/15 ML 120ML PO SCH ×2 (08:41→16:45)
[2021-07-19] MEDS: INSULIN GLARGINE UD 100 UNITS/ML SYR SUBCUT SCH (10:50)
[2021-07-19] MEDS ORDERED: FUROSEMIDE 40MG/4ML VIAL IVP SCH (14:15)
[2021-07-19 14:45] LABS: TOTAL IRON BINDING CAPACITY 200 ug/dL (250-450)
[2021-07-19 15:24] LABS: FOLIC ACID (FOLATE) SERUM 19.6 ng/mL (>5.38)
[2021-07-19] MEDS: CYCLOBENZAPRINE 10MG TABLET PO PRN (19:50)
[2021-07-19] MEDS: HYDROCODONE/ACETAMINOPHEN 10/325MG TABLET PO PRN (20:03)
[2021-07-19] MEDS: BACLOFEN 10MG TABLET PO SCH (21:12)
[2021-07-19] MEDS: ATORVASTATIN CALCIUM 40MG TABLET PO SCH (21:12)
[2021-07-20] VITALS (12 sets, daily range): BP systolic 118–138; BP diastolic 61–75
[2021-07-20] MEDS: CYCLOBENZAPRINE 10MG TABLET PO PRN ×2 (04:26→14:00)
[2021-07-20] MEDS: HYDROCODONE/ACETAMINOPHEN 10/325MG TABLET PO PRN ×3 (04:26→17:23)
[2021-07-20] MEDS: BLOOD SUGAR DIAGNOSTIC STRIP TEST SCH ×4 (06:45→21:22)
[2021-07-20 07:16] LABS: BASOPHILS % 0.5 % (0.0-2.0); EOSINOPHILS % 1.7 % (0.0-5.0); HEMATOCRIT. 31.3 % (42.0-52.0); HEMOGLOBIN. 9.9 g/dL (14.0-18.0); LYMPHOCYTES % 12.6 % (20.0-50.0); MEAN CORPUSCULAR HEMOGLOBIN 23.4 pg (28.0-32.0); MEAN CORPUSCULAR VOLUME 73.8 fL (80.0-94.0); MEAN PLATELET VOLUME 5.8 fl (7.4-10.4); MONOCYTES % 5.6 % (2.0-8.0); NEUTROPHILS % 79.6 % (40.0-76.0); PLATELET 274 x1000/uL (130-400); RED BLOOD CELL COUNT 4.24 mill/uL (4.7-6.1); RED CELL DISTRIBUTION WIDTH 16.5 % (11.6-14.6)
[2021-07-20 07:28] LABS: INR 1.4
[2021-07-20] MEDS: INSULIN LISPRO 100 UNITS/ML SUBCUT SCH ×3 (08:00→16:31)
[2021-07-20] MEDS: DOCUSATE SODIUM 100MG CAPSULE PO SCH ×2 (08:01→16:15)
[2021-07-20] MEDS: PANTOPRAZOLE SODIUM 40 MG/VIAL IV SCH (08:01)
[2021-07-20] MEDS: ENOXAPARIN 60MG/0.6ML SYR SUBCUT SCH (08:01)
[2021-07-20] MEDS: AMLODIPINE 5MG TABLET PO SCH ×2 (08:03→21:21)
[2021-07-20] MEDS: LOSARTAN POTASSIUM 50 MG TABLET PO SCH ×2 (08:03→21:21)
[2021-07-20] MEDS: THEOPHYLLINE ANHYDROUS 80 MG/15 ML 120ML PO SCH ×2 (08:04→16:16)
[2021-07-20] MEDS: LIDOCAINE 5% PATCH TOP SCH (08:04)
[2021-07-20] MEDS: LINEZOLID 600 MG PREMIX 300 ML IV SCH ×2 (08:20→21:22)
[2021-07-20] MEDS: INSULIN GLARGINE UD 100 UNITS/ML SYR SUBCUT SCH (10:14)
[2021-07-20] MEDS ORDERED: FUROSEMIDE 40MG/4ML VIAL IVP SCH (13:45)
[2021-07-20] MEDS ORDERED: MICAFUNGIN 100 MG in SODIUM CHLORIDE 0.9% 100 ML IV SCH (16:00)
[2021-07-20] MEDS ORDERED: NALOXONE HCL 0.4MG/ML VIAL IV PRN (17:00)
[2021-07-20] MEDS ORDERED: ZOLPIDEM TARTRATE 5MG TABLET PO PRN (17:00)
[2021-07-20] MEDS ORDERED: BISACODYL 5MG TABLET PO PRN (18:00)
[2021-07-20] MEDS ORDERED: WARFARIN SODIUM 7.5MG TABLET PO SCH (18:00)
[2021-07-20] MEDS: BISACODYL 5MG TABLET PO SCH ×2 (18:03→21:22)
[2021-07-20] MEDS: METOCLOPRAMIDE HCL 10MG/2ML VIAL IV SCH ×2 (18:04→21:22)
[2021-07-20] MEDS ORDERED: SORBITOL 70% SOLN 30ML PO PRN (18:30)
[2021-07-20] MEDS: SORBITOL 70% SOLN 30ML PO SCH ×2 (18:32→22:30)
[2021-07-20] MEDS ORDERED: SODIUM CHLORIDE 0.45% 1,000 ML IV SCH (18:45)
[2021-07-20] MEDS: BACLOFEN 10MG TABLET PO SCH (21:22)
[2021-07-20] MEDS: ATORVASTATIN CALCIUM 40MG TABLET PO SCH (21:22)
[2021-07-21] VITALS: BP 144/75
[2021-07-21] MEDS: METOCLOPRAMIDE HCL 10MG/2ML VIAL IV SCH ×2 (01:17→06:28)
[2021-07-21] MEDS: BISACODYL 5MG TABLET PO SCH ×2 (01:17→04:00)
[2021-07-21] MEDS: INSULIN LISPRO 100 UNITS/ML SUBCUT SCH ×3 (01:19→11:41)
[2021-07-21] MEDS: CYCLOBENZAPRINE 10MG TABLET PO PRN (01:46)
[2021-07-21] MEDS: SORBITOL 70% SOLN 30ML PO SCH ×2 (02:05→06:52)
[2021-07-21] MEDS: HYDROCODONE/ACETAMINOPHEN 10/325MG TABLET PO PRN ×2 (02:11→11:40)
[2021-07-21 04:00] VITALS: BP 126/71
[2021-07-21] MEDS: BLOOD SUGAR DIAGNOSTIC STRIP TEST SCH ×2 (06:23→11:31)
[2021-07-21 07:15] LABS: BASOPHILS % 0.6 % (0.0-2.0); EOSINOPHILS % 1.3 % (0.0-5.0); HEMATOCRIT. 30.7 % (42.0-52.0); HEMOGLOBIN. 9.8 g/dL (14.0-18.0); LYMPHOCYTES % 15.6 % (20.0-50.0); MEAN CORPUSCULAR HEMOGLOBIN 23.4 pg (28.0-32.0); MEAN CORPUSCULAR VOLUME 73.7 fL (80.0-94.0); MEAN PLATELET VOLUME 5.8 fl (7.4-10.4); MONOCYTES % 6.2 % (2.0-8.0); NEUTROPHILS % 76.3 % (40.0-76.0); PLATELET 247 x1000/uL (130-400); RED BLOOD CELL COUNT 4.16 mill/uL (4.7-6.1); RED CELL DISTRIBUTION WIDTH 16.5 % (11.6-14.6)
[2021-07-21 07:16] LABS: INR 1.4; PROTHROMBIN TIME 14.4 sec (9.6-11.0)
[2021-07-21 08:00] VITALS: BP 130/70
[2021-07-21] MEDS ORDERED: NA PHOS,M-B/NA PHOS,DI-BA ENEMA 118ML PR NR (08:00)
[2021-07-21] MEDS: DOCUSATE SODIUM 100MG CAPSULE PO SCH (09:00)
[2021-07-21] MEDS: LIDOCAINE 5% PATCH TOP SCH (09:06)
[2021-07-21] MEDS: LINEZOLID 600 MG PREMIX 300 ML IV SCH (09:07)
[2021-07-21] MEDS: PANTOPRAZOLE SODIUM 40 MG/VIAL IV SCH (09:07)
[2021-07-21] MEDS: LOSARTAN POTASSIUM 50 MG TABLET PO SCH (09:48)
[2021-07-21] MEDS: AMLODIPINE 5MG TABLET PO SCH (09:48)
[2021-07-21] MEDS: THEOPHYLLINE ANHYDROUS 80 MG/15 ML 120ML PO SCH (09:49)
[2021-07-21] MEDS ORDERED: INSULIN GLARGINE UD 100 UNITS/ML SYR SUBCUT SCH (10:00)
[2021-07-21] MEDS ORDERED: BARIUM SULFATE 450ML ORAL SUSP PO SCH (11:00)
[2021-07-21] MEDS ORDERED: DIATR MEGLU/DIATRIZOATE SOLN 30ML PO SCH (11:00)
[2021-07-21] MEDS ORDERED: FUROSEMIDE 40MG/4ML VIAL IVP NR (11:15)
[2021-07-21] MEDS ORDERED: ENOXAPARIN 60MG/0.6ML SYR SUBCUT SCH (12:00)
[2021-07-21 12:25] VITALS: BP 157/76
[2021-07-21 12:49] VITALS: BP 157/76
[2021-07-21] MEDS ORDERED: CEFTRIAXONE 2 G in DEXTROSE 5% WATER 50 ML IV SCH (13:00)
[2021-07-21] MEDS ORDERED: MICAFUNGIN 150 MG in SODIUM CHLORIDE 0.9% 100 ML IV SCH (14:00)
[2021-07-21] MEDS ORDERED: AMPICILLIN 2,000 MG in SODIUM CHLORIDE 0.9% 100 ML IV SCH (14:00)
[2021-07-21] MEDS ORDERED: WARFARIN SODIUM 5MG TABLET PO NR (15:00)
== END 2021-07-21 15:09 | disposition home health service (06) | DRG 871 ==
LOC: ER 10:18 → 3WST 13:56 → ENRESERV 15:05
PROVIDERS: ADMIT Specialist; ATTEND Specialist
PROC: 02HV33Z Insertion of Infusion Device into Superior Vena Cava, Percutaneous Approach (ICD-10-PCS; principal; 2021-07-15)
PROC: B548ZZA Ultrasonography of Superior Vena Cava, Guidance (ICD-10-PCS; 2021-07-15)
PROC: B5181ZA Fluoroscopy of Superior Vena Cava using Low Osmolar Contrast, Guidance (ICD-10-PCS; 2021-07-15)
DX: A41.81 Sepsis due to Enterococcus (principal); J96.00 Acute respiratory failure, unspecified whether with hypoxia or hypercapnia; M46.26 Osteomyelitis of vertebra, lumbar region; E44.0 Moderate protein-calorie malnutrition; I48.92 Unspecified atrial flutter; N17.9 Acute kidney failure, unspecified; I13.0 Hypertensive heart and chronic kidney disease with heart failure and stage 1 through stage 4 chronic kidney disease, or unspecified chronic kidney disease; B49 Unspecified mycosis; T82.6XXA Infection and inflammatory reaction due to cardiac valve prosthesis, initial encounter; M46.46 Discitis, unspecified, lumbar region; D50.9 Iron deficiency anemia, unspecified; E11.22 Type 2 diabetes mellitus with diabetic chronic kidney disease; E11.69 Type 2 diabetes mellitus with other specified complication; E66.9 Obesity, unspecified; E78.5 Hyperlipidemia, unspecified; E87.5 Hyperkalemia; G47.33 Obstructive sleep apnea (adult) (pediatric); I25.10 Atherosclerotic heart disease of native coronary artery without angina pectoris; N18.30 Chronic kidney disease, stage 3 unspecified; R74.01 Elevation of levels of liver transaminase levels; L81.9 Disorder of pigmentation, unspecified; Z20.822 Contact with and (suspected) exposure to COVID-19; I50.9 Heart failure, unspecified; I48.91 Unspecified atrial fibrillation; E78.00 Pure hypercholesterolemia, unspecified; J45.909 Unspecified asthma, uncomplicated; Y83.1 Surgical operation with implant of artificial internal device as the cause of abnormal reaction of the patient, or of later complication, without mention of misadventure at the time of the procedure; K42.9 Umbilical hernia without obstruction or gangrene; Z95.2 Presence of prosthetic heart valve; Y92.89 Other specified places as the place of occurrence of the external cause; Z79.01 Long term (current) use of anticoagulants; Z79.2 Long term (current) use of antibiotics; Z79.899 Other long term (current) drug therapy; Z68.30 Body mass index [BMI] 30.0-30.9, adult
CPT/HCPCS: 36415; 36573; 36600; 71045; 71275; 72148; 72195; 74174; 76770; 80048; 80053; 80076; 80305; 81003; 82270; 82375; 82550; 82570; 82607; 82728; 82746; 82805; 82962; 83036; 83540; 83550; 83880; 84132; 84145; 84156; 84439; 84443; 84481; 84484; 85025; 85044; 85379; 85651; 86140; 86592; 86705; 86709; 86803; 86850; 86900; 87077; 87186; 87340; 87426; 93005; 93306; 93308; 93312; 94618; 99285; C1725; C9113; J0290; J0696; J1650; J1815; J1940; J2020; J2248; J2250; J2765; J3010; J3490; J7050; J7060; Q9967